=== PATIENT | female | born 1965 | race Caucasian/White ===

== ENCOUNTER 2017-01-23 20:41 | Observation (INO) | payer OTHER ==
[~2017-01-23] VITALS: Ht 149.9 cm; Wt 43.4 kg
[~2017-01-23 20:41] MED LIST: ATROVENT H200 INHALA IH; CARAFATE1 GM PO; CLARINEX-D 121 EACH PO; DILAUDID2 MG PO; PREDNISONE50 MG PO; PRILOSEC20 MG PO; PROTONIX; SPACE CHAMBER1 EACH MC; SUDAFED 12-HOU120 MG PO; VENTOLIN HFA18 GM IH; ZANTAC150 M1 PO; ZITHROMAX Z-PA250 MG PO; ZOFRAN4 MG PO; [UNRECOGNIZED DRUG - REMARK]
[2017-01-23 22:27] LABS: HEMATOCRIT 44.8 % (36.0-46.0); MCH 30.2 PG (29.0-34.0); MCHC 34.2 G/DL (30.0-36.0); MCV 88.4 FL (83-99); MEAN PLAT.VOLUME 10.5 uM^3 (9.5-12.4); PLATELET COUNT 166 K/uL (156-360); RBC DIS.WIDTH-CV 12.2 % (11.8-14.6); RBC DIS.WIDTH-SD 39.9 % (39-53); RED BLOOD COUNT 5.07 M/uL (3.80-5.20)
[2017-01-23 22:41] LABS: CHLORIDE 102 mEq/L (99-109); POTASSIUM 4.1 mEq/L (3.7-5.4); SODIUM 138 mEq/L (136-147)
[2017-01-23 22:43] LABS: GLUCOSE 150 mg/dL (70-99)
[2017-01-23 22:45] LABS: ANION GAP 15 MEQ/L (2-14); TOTAL BILIRUBIN 1.3 mg/dL (0.0-1.0)
[2017-01-23 22:47] LABS: ALKALINE PHOSPHATASE 77 IU/L (3-129); GFR ESTIMATE (CALCULATED) 55 mL/min/
[2017-01-23 22:48] LABS: UREA NITROGEN (BUN) 22 mg/dL (9-23)
[2017-01-23 22:50] LABS: LIPASE 4 U/L (1.0-51.0)
[2017-01-23 22:57] LABS: QUANTITATIVE HCG < 4.0 MIU/ML
[2017-01-23 23:53] LABS: ADD MIUA? YES; BILIRUBIN NEGATIVE; BLOOD SMALL; COLOR YELLOW ((YELLOW)); GLUCOSE (STRIP) 50; KETONES 20; LEUKOCYTES NEGATIVE; NITRITE NEGATIVE; PROTEIN (STRIP) 100; SPECIFIC GRAVITY 1.038 (1.000-1.030); UROBILINOGEN 0.2 MG/DL (0.2-1.0)
[2017-01-23 23:56] LABS: BACTERIA NONE SEEN /HPF; EPITHELIAL CELLS RARE /HPF; MUCUS 3+ /LPF; UCUL ADDED? NO; WHITE BLOOD CELLS 0-5 /HPF (0-5)
[2017-01-24] MEDS ORDERED: OMEPRAZOLE40 M1 PO (01:49)
[2017-01-24] MEDS ORDERED: VENTOLIN HFA18 GM IH (01:50)
[2017-01-24 03:36] VITALS: BP 163/95
[2017-01-24 07:01] LABS: HEMATOCRIT 41.6 % (36.0-46.0); MCHC 34.4 G/DL (30.0-36.0); MCV 87.2 FL (83-99); MEAN PLAT.VOLUME 10.4 uM^3 (9.5-12.4); PLATELET COUNT 170 K/uL (156-360); RBC DIS.WIDTH-CV 12.4 % (11.8-14.6); RBC DIS.WIDTH-SD 39.6 % (39-53); RED BLOOD COUNT 4.77 M/uL (3.80-5.20); WHITE BLOOD COUNT 10.7 K/uL (4.1-10.2)
[2017-01-24 07:19] VITALS: BP 168/88
[2017-01-24 07:31] LABS: ANION GAP 10 MEQ/L (2-14); CHLORIDE 104 MEQ/L (99-109); GFR ESTIMATE (CALCULATED) > 59 mL/min/; GLUCOSE 138 mg/dL (70-99); POTASSIUM 3.6 MEQ/L (3.7-5.4); SAMPLE HEMOLYSIS CHECK 0; SAMPLE ICTERIC CHECK 0; SAMPLE LIPEMIA CHECK 0; SODIUM 138 MEQ/L (136-147); UREA NITROGEN (BUN) 17 mg/dL (9-23)
[2017-01-24 10:25] VITALS: BP 170/77
[2017-01-24 15:33] VITALS: BP 142/88
[2017-01-24 20:00] VITALS: BP 144/88
[2017-01-24 22:56] VITALS: BP 135/91
[2017-01-25 04:20] VITALS: BP 144/74
[2017-01-25 06:25] LABS: EOSINOPHIL (%) 0.1 % (0-5); IMMATURE GRANULOCYTE (%) 0.4 % (0.0-0.7); INSTRUMENT ABS NEUTROPHIL CT 6.5 K/uL; LYMPHOCYTE COUNT 1.2 K/uL (1.0-2.8); MCH 30.2 PG (29.0-34.0); MCHC 34.5 G/DL (30.0-36.0); MCV 87.5 FL (83-99); MEAN PLAT.VOLUME 10.4 uM^3 (9.5-12.4); MONOCYTE (%) 6.9 % (3-12); MONOCYTE COUNT 0.6 K/uL (0-0.8); NEUTROPHIL (%) 78.2 % (45-76); NEUTROPHIL COUNT 6.5 K/uL (1.8-6.4); PLATELET COUNT 160 K/uL (156-360); RBC DIS.WIDTH-CV 12.5 % (11.8-14.6); RBC DIS.WIDTH-SD 39.9 % (39-53); RED BLOOD COUNT 4.57 M/uL (3.80-5.20); WHITE BLOOD COUNT 8.3 K/uL (4.1-10.2)
[2017-01-25 06:43] LABS: ANION GAP 8 MEQ/L (2-14); CHLORIDE 99 MEQ/L (99-109); GFR ESTIMATE (CALCULATED) > 59 mL/min/; GLUCOSE 122 mg/dL (70-99); SAMPLE HEMOLYSIS CHECK 0; SAMPLE ICTERIC CHECK 0; SAMPLE LIPEMIA CHECK 0; SODIUM 132 MEQ/L (136-147); UREA NITROGEN (BUN) 7 mg/dL (9-23)
[2017-01-25 07:35] VITALS: BP 140/99
[2017-01-25 12:10] VITALS: BP 154/98
[2017-01-25] MEDS ORDERED: ZOFRAN4 MG PO (13:19)
== END 2017-01-25 14:42 | disposition home health service (06) ==
LOC: EME 20:41 → EDOF 01-24 01:48 → 5WEST 01-24 01:48 → EDOF 01-24 01:48 → 5WEST 01-24 03:07
PROVIDERS: Family Medicine; Physician Assistant Medical
DX: R11.2 Nausea with vomiting, unspecified (principal); R19.7 Diarrhea, unspecified; F17.200 Nicotine dependence, unspecified, uncomplicated; R73.9 Hyperglycemia, unspecified
CPT/HCPCS: 74177; 80048; 80053; 81003; 83690; 84702; 85025; 85027; 94640; 94640 76; 99202; 99281; 99285; C9113; G0378; J2405; J2765; J7030; S0028

== ENCOUNTER 2017-02-15 11:01 | Inpatient (IN) | payer OTHER ==
[~2017-02-15] VITALS: Ht 162.6 cm; Wt 46.0 kg
[~2017-02-15 11:01] MED LIST changes: +OMEPRAZOLE40 M1 PO
[2017-02-15 12:41] LABS: HEMATOCRIT 40.6 % (36.0-46.0); MCH 30.1 PG (29.0-34.0); MCV 91.2 FL (83-99); PLATELET COUNT 189 K/uL (156-360); RBC DIS.WIDTH-CV 12.9 % (11.8-14.6); RBC DIS.WIDTH-SD 42.7 % (39-53); RED BLOOD COUNT 4.45 M/uL (3.80-5.20)
[2017-02-15 12:43] LABS: WHITE BLOOD COUNT 7.6 K/uL (4.1-10.2)
[2017-02-15 12:46] LABS: CHLORIDE 106 mEq/L (99-109); POTASSIUM 3.6 mEq/L (3.7-5.4); SODIUM 141 mEq/L (136-147)
[2017-02-15 12:48] LABS: GLUCOSE 139 mg/dL (70-99)
[2017-02-15 12:49] LABS: ANION GAP 10 MEQ/L (2-14)
[2017-02-15 12:52] LABS: ALKALINE PHOSPHATASE 70 IU/L (3-129); GFR ESTIMATE (CALCULATED) > 59 mL/min/
[2017-02-15 12:53] LABS: UREA NITROGEN (BUN) 11 mg/dL (9-23)
[2017-02-15 13:04] LABS: QUANTITATIVE HCG < 4.0 MIU/ML
[2017-02-15 13:50] LABS: LIPASE 18 U/L (1.0-51.0)
[2017-02-15 15:00] LABS: ADD MIUA? YES; BILIRUBIN NEGATIVE; BLOOD NEGATIVE; COLOR YELLOW ((YELLOW)); GLUCOSE (STRIP) 50; KETONES 5; LEUKOCYTES TRACE; NITRITE NEGATIVE; PROTEIN (STRIP) NEGATIVE; SPECIFIC GRAVITY 1.012 (1.000-1.030); UROBILINOGEN 0.2 MG/DL (0.2-1.0)
[2017-02-15 15:34] LABS: BACTERIA RARE /HPF; EPITHELIAL CELLS RARE /HPF; MUCUS TRACE /LPF; RED BLOOD CELLS 0-5 /HPF (0-5); UCUL ADDED? NO; WHITE BLOOD CELLS 0-5 /HPF (0-5)
[2017-02-15 22:05] VITALS: BP 175/101
[2017-02-16 00:31] VITALS: BP 167/97
[2017-02-16 03:46] VITALS: BP 142/76
[2017-02-16 05:35] LABS: HEMATOCRIT 37.7 % (36.0-46.0); MCV 88.3 FL (83-99); MEAN PLAT.VOLUME 9.9 uM^3 (9.5-12.4); PLATELET COUNT 182 K/uL (156-360); RBC DIS.WIDTH-CV 12.9 % (11.8-14.6); RBC DIS.WIDTH-SD 41.8 % (39-53); RED BLOOD COUNT 4.27 M/uL (3.80-5.20); WHITE BLOOD COUNT 7.9 K/uL (4.1-10.2)
[2017-02-16 06:37] LABS: ANION GAP 10 MEQ/L (2-14); CHLORIDE 104 MEQ/L (99-109); GFR ESTIMATE (CALCULATED) > 59 mL/min/; GLUCOSE 129 mg/dL (70-99); POTASSIUM 3.6 MEQ/L (3.7-5.4); SAMPLE HEMOLYSIS CHECK 0; SAMPLE ICTERIC CHECK 0; SAMPLE LIPEMIA CHECK 0; SODIUM 138 MEQ/L (136-147); UREA NITROGEN (BUN) 8 mg/dL (9-23)
[2017-02-16 08:20] VITALS: BP 145/80
[2017-02-16 12:34] VITALS: BP 141/85
[2017-02-16 16:00] VITALS: BP 161/95
[2017-02-16 19:42] VITALS: BP 147/95
[2017-02-17 00:05] VITALS: BP 178/108
[2017-02-17 06:04] LABS: ANION GAP 7 MEQ/L (2-14); CHLORIDE 102 MEQ/L (99-109); GFR ESTIMATE (CALCULATED) > 59 mL/min/; GLUCOSE 132 mg/dL (70-99); POTASSIUM 3.6 MEQ/L (3.7-5.4); SAMPLE HEMOLYSIS CHECK 0; SAMPLE ICTERIC CHECK 0; SAMPLE LIPEMIA CHECK 0; SODIUM 134 MEQ/L (136-147); UREA NITROGEN (BUN) 3 mg/dL (9-23)
[2017-02-17 06:08] VITALS: BP 162/86
[2017-02-17 08:05] VITALS: BP 136/88
[2017-02-17 14:30] VITALS: BP 129/82
[2017-02-17] MEDS ORDERED: CETIRIZINE HCL10 M2 PO (15:09)
[2017-02-17] MEDS ORDERED: SYMBICORT60 INHALAT IH (15:10)
[2017-02-17] MEDS ORDERED: ONDANSETRON ODT4 MG PO (15:10)
[2017-02-17] MEDS ORDERED: MELOXICAM15 MG PO (15:11)
[2017-02-17 16:00] VITALS: BP 142/84
[2017-02-17 19:55] VITALS: BP 127/85
[2017-02-18 00:10] VITALS: BP 121/68
[2017-02-18 05:37] LABS: ANION GAP 7 MEQ/L (2-14); CHLORIDE 104 MEQ/L (99-109); GFR ESTIMATE (CALCULATED) > 59 mL/min/; GLUCOSE 103 mg/dL (70-99); POTASSIUM 3.5 MEQ/L (3.7-5.4); SAMPLE HEMOLYSIS CHECK 0; SAMPLE ICTERIC CHECK 0; SAMPLE LIPEMIA CHECK 0; SODIUM 137 MEQ/L (136-147); UREA NITROGEN (BUN) 6 mg/dL (9-23)
[2017-02-18 08:16] VITALS: BP 170/106
[2017-02-18 12:20] VITALS: BP 162/108
[2017-02-18 15:12] VITALS: BP 197/98
[2017-02-18 16:48] VITALS: BP 173/71
[2017-02-18 21:46] VITALS: BP 136/83
[2017-02-19 00:45] VITALS: BP 170/86
[2017-02-19 02:44] LABS: HEMATOCRIT 41.4 % (36.0-46.0); MCH 30.4 PG (29.0-34.0); MCHC 34.8 G/DL (30.0-36.0); MCV 87.3 FL (83-99); MEAN PLAT.VOLUME 9.7 uM^3 (9.5-12.4); PLATELET COUNT 197 K/uL (156-360); RBC DIS.WIDTH-CV 12.8 % (11.8-14.6); RBC DIS.WIDTH-SD 41.2 % (39-53); RED BLOOD COUNT 4.74 M/uL (3.80-5.20); WHITE BLOOD COUNT 5.7 K/uL (4.1-10.2)
[2017-02-19 02:54] LABS: CHLORIDE 100 mEq/L (99-109); SODIUM 135 mEq/L (136-147)
[2017-02-19 02:55] LABS: GLUCOSE 100 mg/dL (70-99)
[2017-02-19 02:57] LABS: ANION GAP 11 MEQ/L (2-14)
[2017-02-19 02:58] LABS: D-DIMER ELISA 0.45 mg/L FEU (< 0.57)
[2017-02-19 02:59] LABS: GFR ESTIMATE (CALCULATED) > 59 mL/min/
[2017-02-19 03:00] VITALS: BP 155/59
[2017-02-19 03:00] LABS: UREA NITROGEN (BUN) 5 mg/dL (9-23)
[2017-02-19 03:11] LABS: TROP-I INTERPRETATION NEGATIVE; TROPONIN-I < 0.01 ng/mL (0.0-0.30)
[2017-02-19 06:54] LABS: BASOPHIL COUNT 0.1 K/uL (0-0.1); EOSINOPHIL (%) 0.1 % (0-5); HEMATOCRIT 38.7 % (36.0-46.0); IMMATURE GRANULOCYTE (%) 0.3 % (0.0-0.7); INSTRUMENT ABS NEUTROPHIL CT 5.8 K/uL; LYMPHOCYTE COUNT 1.2 K/uL (1.0-2.8); MCHC 33.9 G/DL (30.0-36.0); MCV 88.6 FL (83-99); MONOCYTE (%) 5.9 % (3-12); MONOCYTE COUNT 0.4 K/uL (0-0.8); NEUTROPHIL (%) 77.4 % (45-76); NEUTROPHIL COUNT 5.8 K/uL (1.8-6.4); PLATELET COUNT 187 K/uL (156-360); RBC DIS.WIDTH-SD 42.4 % (39-53); RED BLOOD COUNT 4.37 M/uL (3.80-5.20)
[2017-02-19 06:56] LABS: WHITE BLOOD COUNT 7.5 K/uL (4.1-10.2)
[2017-02-19 07:22] LABS: ALKALINE PHOSPHATASE 65 IU/L (3-129); ANION GAP 9 MEQ/L (2-14); CHLORIDE 98 MEQ/L (99-109); GFR ESTIMATE (CALCULATED) > 59 mL/min/; GLUCOSE 99 mg/dL (70-99); SAMPLE HEMOLYSIS CHECK 0; SAMPLE ICTERIC CHECK 0; SAMPLE LIPEMIA CHECK 0; SODIUM 134 MEQ/L (136-147); TOTAL BILIRUBIN 1.6 MG/DL (0.0-1.0); UREA NITROGEN (BUN) 6 mg/dL (9-23)
[2017-02-19 07:56] VITALS: BP 156/77
[2017-02-19 12:30] VITALS: BP 142/96
[2017-02-19 18:25] VITALS: BP 134/86
[2017-02-19 20:20] VITALS: BP 107/66
[2017-02-20] VITALS: BP 112/68
[2017-02-20 04:30] VITALS: BP 128/81
[2017-02-20 06:52] LABS: BASOPHIL COUNT 0.1 K/uL (0-0.1); EOSINOPHIL (%) 1.7 % (0-5); EOSINOPHIL COUNT 0.1 K/uL (0-0.3); HEMATOCRIT 35.9 % (36.0-46.0); IMMATURE GRANULOCYTE (%) 0.3 % (0.0-0.7); INSTRUMENT ABS NEUTROPHIL CT 2.3 K/uL; LYMPHOCYTE COUNT 0.9 K/uL (1.0-2.8); MCH 30.1 PG (29.0-34.0); MCV 88.6 FL (83-99); MEAN PLAT.VOLUME 9.4 uM^3 (9.5-12.4); MONOCYTE (%) 9.2 % (3-12); MONOCYTE COUNT 0.3 K/uL (0-0.8); NEUTROPHIL (%) 63.1 % (45-76); NEUTROPHIL COUNT 2.3 K/uL (1.8-6.4); PLATELET COUNT 164 K/uL (156-360); RBC DIS.WIDTH-CV 12.9 % (11.8-14.6); RED BLOOD COUNT 4.05 M/uL (3.80-5.20)
[2017-02-20 06:54] LABS: WHITE BLOOD COUNT 3.6 K/uL (4.1-10.2)
[2017-02-20 07:17] LABS: ANION GAP 5 MEQ/L (2-14); CHLORIDE 101 MEQ/L (99-109); GFR ESTIMATE (CALCULATED) > 59 mL/min/; GLUCOSE 108 mg/dL (70-99); SAMPLE HEMOLYSIS CHECK 0; SAMPLE ICTERIC CHECK 0; SAMPLE LIPEMIA CHECK 0; SODIUM 133 MEQ/L (136-147); UREA NITROGEN (BUN) 9 mg/dL (9-23)
[2017-02-20 07:19] LABS: POTASSIUM 3.7 MEQ/L (3.7-5.4)
[2017-02-20 08:05] VITALS: BP 137/88
[2017-02-20 16:10] VITALS: BP 127/79
[2017-02-20 23:15] VITALS: BP 123/76
[2017-02-21 06:29] LABS: ANION GAP 7 MEQ/L (2-14); CHLORIDE 100 MEQ/L (99-109); GFR ESTIMATE (CALCULATED) > 59 mL/min/; GLUCOSE 104 mg/dL (70-99); POTASSIUM 3.5 MEQ/L (3.7-5.4); SAMPLE HEMOLYSIS CHECK 0; SAMPLE ICTERIC CHECK 0; SAMPLE LIPEMIA CHECK 0; SODIUM 133 MEQ/L (136-147); UREA NITROGEN (BUN) 7 mg/dL (9-23)
[2017-02-21 08:34] VITALS: BP 130/89
[2017-02-21 17:16] VITALS: BP 168/91
[2017-02-21] MEDS ORDERED: DICYCLOMINE HCL10 MG PO (18:35)
[2017-02-21] MEDS ORDERED: ENDOCET 5-3251 EACH PO (18:35)
[2017-02-21] MEDS ORDERED: METRONIDAZOLE500 MG PO (18:35)
[2017-02-21] MEDS ORDERED: ONDANSETRON ODT4 MG PO (18:35)
[2017-02-21] MEDS ORDERED: CLARITHROMYCIN500 MG PO (18:35)
[2017-02-21] MEDS ORDERED: PANTOPRAZOLE SO40 MG PO (18:35)
[2017-02-21] MEDS ORDERED: BYSTOLIC5 MG PO (18:35)
== END 2017-02-21 20:13 | disposition home or self-care (01) | DRG 446 ==
LOC: EME 11:01 → EDOF 19:50 → 5WEST 19:50 → EME 21:29 → 5WEST 21:48 → 4EAST 02-18 12:21 → 5WEST 02-19 02:47 → 4EAST 02-19 03:20 → 5EAST 02-20 17:54
PROVIDERS: Family Medicine; Internal Medicine
DX: K83.8 Other specified diseases of biliary tract (principal); K29.40 Chronic atrophic gastritis without bleeding; B96.81 Helicobacter pylori [H. pylori] as the cause of diseases classified elsewhere; R11.2 Nausea with vomiting, unspecified; F41.9 Anxiety disorder, unspecified; R63.4 Abnormal weight loss; J44.9 Chronic obstructive pulmonary disease, unspecified; F32.9 Major depressive disorder, single episode, unspecified; F17.210 Nicotine dependence, cigarettes, uncomplicated; R07.9 Chest pain, unspecified; R00.0 Tachycardia, unspecified; E87.6 Hypokalemia; R12 Heartburn; K21.9 Gastro-esophageal reflux disease without esophagitis
CPT/HCPCS: 71010; 71275; 74174; 80048; 80048 91; 80053; 81003; 83605; 83690; 84484; 84702; 85025; 85027; 85379; 88305; 88342 TC; 93005; 94640; 94640 76; 94799; 99202; 99281; 99285; C1726; C9113; G0378; J0330; J1100; J1200; J1650; J1885; J2405; J2765; J3010; J3480; J7030; J7042

== ENCOUNTER 2017-02-24 11:22 | Emergency (ER) | payer OTHER ==
[~2017-02-24] VITALS: Ht 149.9 cm; Wt 42.9 kg
[~2017-02-24 11:22] MED LIST changes: +BYSTOLIC5 MG PO; +CETIRIZINE HCL10 M2 PO; +CLARITHROMYCIN500 MG PO; +DICYCLOMINE HCL10 MG PO; +ENDOCET 5-3251 EACH PO; +MELOXICAM15 MG PO; +METRONIDAZOLE500 MG PO; +ONDANSETRON ODT4 MG PO; +PANTOPRAZOLE SO40 MG PO; +SYMBICORT60 INHALAT IH
[2017-02-24 12:58] LABS: BASOPHIL COUNT 0.1 K/uL (0-0.1); EOSINOPHIL (%) 0.4 % (0-5); HEMATOCRIT 39.9 % (36.0-46.0); IMMATURE GRANULOCYTE (%) 0.3 % (0.0-0.7); INSTRUMENT ABS NEUTROPHIL CT 6.1 K/uL; LYMPHOCYTE COUNT 0.7 K/uL (1.0-2.8); MCH 30.6 PG (29.0-34.0); MCHC 34.3 G/DL (30.0-36.0); MCV 89.3 FL (83-99); MEAN PLAT.VOLUME 10.4 uM^3 (9.5-12.4); MONOCYTE (%) 4.6 % (3-12); MONOCYTE COUNT 0.3 K/uL (0-0.8); NEUTROPHIL (%) 83.9 % (45-76); NEUTROPHIL COUNT 6.1 K/uL (1.8-6.4); PLATELET COUNT 202 K/uL (156-360); RBC DIS.WIDTH-CV 12.8 % (11.8-14.6); RED BLOOD COUNT 4.47 M/uL (3.80-5.20); WHITE BLOOD COUNT 7.2 K/uL (4.1-10.2)
[2017-02-24 13:09] LABS: CHLORIDE 103 mEq/L (99-109); POTASSIUM 3.1 mEq/L (3.7-5.4); SODIUM 139 mEq/L (136-147)
[2017-02-24 13:15] LABS: GFR ESTIMATE (CALCULATED) > 59 mL/min/
[2017-02-24 13:16] LABS: UREA NITROGEN (BUN) 12 mg/dL (9-23)
[2017-02-24 13:18] LABS: LIPASE 22 U/L (1.0-51.0)
[2017-02-24 13:36] LABS: ANION GAP 11 MEQ/L (2-14)
[2017-02-24 13:50] LABS: ADD MIUA? NO; BILIRUBIN NEGATIVE; BLOOD NEGATIVE; COLOR YELLOW ((YELLOW)); GLUCOSE (STRIP) NEGATIVE; KETONES NEGATIVE; LEUKOCYTES NEGATIVE; NITRITE NEGATIVE; PROTEIN (STRIP) NEGATIVE; SPECIFIC GRAVITY 1.017 (1.000-1.030); UCUL ADDED? NO; UROBILINOGEN 0.2 MG/DL (0.2-1.0)
[2017-02-24 14:02] LABS: GLUCOSE 113 mg/dL (70-99)
[2017-02-24 14:05] LABS: ALKALINE PHOSPHATASE 61 IU/L (3-129)
[2017-02-24] MEDS ORDERED: DONNATAL1 TABLET PO (14:39)
[2017-02-24 16:55] VITALS: BP 184/112
== END 2017-02-24 17:06 | disposition home or self-care (01) ==
LOC: EME → EDBD 11:22 → EME 17:06
PROVIDERS: Emergency Medicine
DX: R10.9 Unspecified abdominal pain (principal); I10 Essential (primary) hypertension; K21.9 Gastro-esophageal reflux disease without esophagitis; J44.9 Chronic obstructive pulmonary disease, unspecified; Z87.891 Personal history of nicotine dependence
CPT/HCPCS: 80053; 81003; 83690; 85025; 99281; 99285; J2060; J2270; J2405; J7030

== ENCOUNTER 2017-02-26 08:18 | Emergency (ER) | payer OTHER ==
[~2017-02-26] VITALS: Ht 124.5 cm; Wt 39.5 kg
[~2017-02-26 08:18] MED LIST changes: +DONNATAL1 TABLET PO
[2017-02-26 09:15] LABS: CHLORIDE 99 mEq/L (99-109); POTASSIUM 3.7 mEq/L (3.7-5.4); SODIUM 133 mEq/L (136-147)
[2017-02-26 09:17] LABS: GLUCOSE 87 mg/dL (70-99)
[2017-02-26 09:18] LABS: ANION GAP 8 MEQ/L (2-14)
[2017-02-26 09:19] LABS: TOTAL BILIRUBIN 1.2 mg/dL (0.0-1.0)
[2017-02-26 09:20] LABS: ALKALINE PHOSPHATASE 53 IU/L (3-129)
[2017-02-26 09:21] LABS: GFR ESTIMATE (CALCULATED) > 59 mL/min/
[2017-02-26 09:22] LABS: UREA NITROGEN (BUN) 11 mg/dL (9-23)
[2017-02-26 09:24] LABS: LIPASE 14 U/L (1.0-51.0)
[2017-02-26 09:25] LABS: EOSINOPHIL (%) 0.4 % (0-5); HEMATOCRIT 40.7 % (36.0-46.0); IMMATURE GRANULOCYTE (%) 0.4 % (0.0-0.7); INSTRUMENT ABS NEUTROPHIL CT 3.4 K/uL; LYMPHOCYTE COUNT 0.7 K/uL (1.0-2.8); MCH 30.2 PG (29.0-34.0); MCHC 33.9 G/DL (30.0-36.0); MCV 89.1 FL (83-99); MEAN PLAT.VOLUME 9.4 uM^3 (9.5-12.4); MONOCYTE (%) 6.4 % (3-12); MONOCYTE COUNT 0.3 K/uL (0-0.8); NEUTROPHIL (%) 75.7 % (45-76); NEUTROPHIL COUNT 3.4 K/uL (1.8-6.4); PLATELET COUNT 207 K/uL (156-360); RBC DIS.WIDTH-CV 12.7 % (11.8-14.6); RBC DIS.WIDTH-SD 41.4 % (39-53); RED BLOOD COUNT 4.57 M/uL (3.80-5.20)
[2017-02-26 09:26] LABS: WHITE BLOOD COUNT 4.5 K/uL (4.1-10.2)
[2017-02-26 11:09] LABS: ADD MIUA? NO; BILIRUBIN NEGATIVE; BLOOD NEGATIVE; COLOR STRAW ((YELLOW)); GLUCOSE (STRIP) NEGATIVE; KETONES 20; LEUKOCYTES NEGATIVE; NITRITE NEGATIVE; PROTEIN (STRIP) NEGATIVE; UROBILINOGEN 0.2 MG/DL (0.2-1.0)
[2017-02-26 13:22] VITALS: BP 92/62
== END 2017-02-26 13:24 | disposition home or self-care (01) ==
LOC: EME → EDBD 08:18 → EME 13:24
PROVIDERS: Emergency Medicine
DX: R10.30 Lower abdominal pain, unspecified (principal); R11.2 Nausea with vomiting, unspecified; K58.9 Irritable bowel syndrome, unspecified; I10 Essential (primary) hypertension; J44.9 Chronic obstructive pulmonary disease, unspecified; K21.9 Gastro-esophageal reflux disease without esophagitis; F41.9 Anxiety disorder, unspecified; F32.9 Major depressive disorder, single episode, unspecified; Z87.891 Personal history of nicotine dependence; Z91.14 Patient's other noncompliance with medication regimen
CPT/HCPCS: 80053; 81003; 83690; 85025; 99281; 99285; J1885; J2405; J2765; J3010; J7030

== ENCOUNTER 2017-02-28 13:49 | Emergency (ER) | payer OTHER ==
[~2017-02-28] VITALS: Ht 149.9 cm; Wt 40.5 kg
[2017-02-28 15:10] LABS: ADD MIUA? NO; BILIRUBIN NEGATIVE; BLOOD NEGATIVE; COLOR YELLOW ((YELLOW)); GLUCOSE (STRIP) 50; KETONES 20; LEUKOCYTES NEGATIVE; NITRITE NEGATIVE; PROTEIN (STRIP) 30; SPECIFIC GRAVITY 1.016 (1.000-1.030); UROBILINOGEN 0.2 MG/DL (0.2-1.0)
[2017-02-28 15:16] LABS: HEMATOCRIT 39.3 % (36.0-46.0); MCH 30.4 PG (29.0-34.0); MCHC 34.4 G/DL (30.0-36.0); MCV 88.5 FL (83-99); MEAN PLAT.VOLUME 9.4 uM^3 (9.5-12.4); PLATELET COUNT 241 K/uL (156-360); RBC DIS.WIDTH-CV 12.8 % (11.8-14.6); RBC DIS.WIDTH-SD 41.7 % (39-53); RED BLOOD COUNT 4.44 M/uL (3.80-5.20)
[2017-02-28 15:20] LABS: WHITE BLOOD COUNT 6.3 K/uL (4.1-10.2)
[2017-02-28 15:31] LABS: ALKALINE PHOSPHATASE 55 IU/L (3-129); ANION GAP 11 MEQ/L (2-14); CHLORIDE 100 MEQ/L (99-109); GFR ESTIMATE (CALCULATED) > 59 mL/min/; GLUCOSE 122 mg/dL (70-99); LIPASE 14 U/L (1.0-51.0); POTASSIUM 3.4 MEQ/L (3.7-5.4); SAMPLE HEMOLYSIS CHECK 0; SAMPLE ICTERIC CHECK 0; SAMPLE LIPEMIA CHECK 0; SODIUM 137 MEQ/L (136-147); UREA NITROGEN (BUN) 9 mg/dL (9-23)
[2017-02-28] MEDS ORDERED: PHENERGAN12.5 MG PR (16:40)
[2017-02-28 17:06] VITALS: BP 128/81
== END 2017-02-28 17:07 | disposition home or self-care (01) ==
LOC: EME 13:49
PROVIDERS: Nurse Practitioner Family
DX: R10.9 Unspecified abdominal pain (principal); R11.0 Nausea; J44.9 Chronic obstructive pulmonary disease, unspecified; I10 Essential (primary) hypertension; K21.9 Gastro-esophageal reflux disease without esophagitis; Z87.891 Personal history of nicotine dependence; B96.81 Helicobacter pylori [H. pylori] as the cause of diseases classified elsewhere; K29.70 Gastritis, unspecified, without bleeding
CPT/HCPCS: 80053; 81003; 83690; 85027; 99281; 99285; J1630; J1885; J2405; J3010; J7030

== ENCOUNTER → 2017-03-25 | Outpatient (CLI) | payer OTHER ==
[~2017-03-25] MED LIST changes: +PHENERGAN12.5 MG PR
== END | disposition home or self-care (01) ==
LOC: NUC 11:07
DX: R10.33 Periumbilical pain (principal); R93.3 Abnormal findings on diagnostic imaging of other parts of digestive tract; R11.2 Nausea with vomiting, unspecified; R63.4 Abnormal weight loss
CPT/HCPCS: 78227; A9537; J2805

== ENCOUNTER 2017-05-30 07:57 | Emergency (ER) | payer OTHER ==
[~2017-05-30] VITALS: Ht 149.9 cm; Wt 40.1 kg
[2017-05-30 08:20] LABS: HEMATOCRIT 42.7 % (36.0-46.0); MCH 30.7 PG (29.0-34.0); MCHC 34.4 G/DL (30.0-36.0); MCV 89.1 FL (83-99); MEAN PLAT.VOLUME 10.3 uM^3 (9.5-12.4); PLATELET COUNT 153 K/uL (156-360); RBC DIS.WIDTH-CV 11.9 % (11.8-14.6); RBC DIS.WIDTH-SD 38.7 % (39-53); RED BLOOD COUNT 4.79 M/uL (3.80-5.20); WHITE BLOOD COUNT 8.1 K/uL (4.1-10.2)
[2017-05-30 08:41] LABS: ANION GAP 12 MEQ/L (2-14); CHLORIDE 103 MEQ/L (99-109); POTASSIUM 3.7 MEQ/L (3.7-5.4); SAMPLE HEMOLYSIS CHECK 0; SAMPLE ICTERIC CHECK 0; SAMPLE LIPEMIA CHECK 0; SODIUM 140 MEQ/L (136-147); TOTAL BILIRUBIN 1.5 MG/DL (0.0-1.0)
[2017-05-30 08:47] LABS: ALKALINE PHOSPHATASE 56 IU/L (3-129); GFR ESTIMATE (CALCULATED) > 59 mL/min/; GLUCOSE 112 mg/dL (70-99); LIPASE 4 U/L (1.0-51.0); UREA NITROGEN (BUN) 25 mg/dL (9-23)
[2017-05-30 09:34] LABS: ADD MIUA? YES; BILIRUBIN NEGATIVE; BLOOD SMALL; COLOR YELLOW ((YELLOW)); GLUCOSE (STRIP) 50; KETONES 20; LEUKOCYTES NEGATIVE; NITRITE NEGATIVE; PROTEIN (STRIP) 100; UROBILINOGEN 0.2 MG/DL (0.2-1.0)
[2017-05-30 09:40] LABS: BACTERIA NONE SEEN /HPF; EPITHELIAL CELLS RARE /HPF; HYALINE CASTS 0-5 /LPF; MUCUS TRACE /LPF; RED BLOOD CELLS 0-5 /HPF (0-5); WHITE BLOOD CELLS 0-5 /HPF (0-5)
[2017-05-30] MEDS ORDERED: BENTYL20 MG PO (11:37)
[2017-05-30] MEDS ORDERED: PHENERGAN12.5 MG PR (11:37)
[2017-05-30 12:33] VITALS: BP 151/99
== END 2017-05-30 12:34 | disposition home or self-care (01) ==
LOC: EME → EDBD 07:57 → EME 07:57
PROVIDERS: Nurse Practitioner Family
DX: R10.9 Unspecified abdominal pain (principal); R11.2 Nausea with vomiting, unspecified; I10 Essential (primary) hypertension; K21.9 Gastro-esophageal reflux disease without esophagitis; J44.9 Chronic obstructive pulmonary disease, unspecified; Z86.73 Personal history of transient ischemic attack (TIA), and cerebral infarction without residual deficits; Z87.891 Personal history of nicotine dependence
CPT/HCPCS: 74177; 80053; 81003; 83690; 85027; 99281; 99285; J1630; J1885; J7040

== ENCOUNTER 2017-06-03 10:09 | Emergency (ER) | payer OTHER ==
[~2017-06-03] VITALS: Ht 149.9 cm; Wt 38.8 kg
[~2017-06-03 10:09] MED LIST changes: +BENTYL20 MG PO
[2017-06-03 11:09] LABS: BASOPHIL COUNT 0.1 K/uL (0-0.1); EOSINOPHIL (%) 0.9 % (0-5); EOSINOPHIL COUNT 0.1 K/uL (0-0.3); HEMATOCRIT 46.4 % (36.0-46.0); IMMATURE GRANULOCYTE (%) 0.4 % (0.0-0.7); INSTRUMENT ABS NEUTROPHIL CT 4.7 K/uL; LYMPHOCYTE COUNT 1.3 K/uL (1.0-2.8); MCH 30.8 PG (29.0-34.0); MCHC 34.9 G/DL (30.0-36.0); MCV 88.2 FL (83-99); MEAN PLAT.VOLUME 10.1 uM^3 (9.5-12.4); MONOCYTE (%) 9.3 % (3-12); MONOCYTE COUNT 0.6 K/uL (0-0.8); NEUTROPHIL (%) 69.3 % (45-76); NEUTROPHIL COUNT 4.7 K/uL (1.8-6.4); PLATELET COUNT 218 K/uL (156-360); RBC DIS.WIDTH-CV 11.6 % (11.8-14.6); RBC DIS.WIDTH-SD 37.2 % (39-53); RED BLOOD COUNT 5.26 M/uL (3.80-5.20); WHITE BLOOD COUNT 6.8 K/uL (4.1-10.2)
[2017-06-03 11:12] LABS: CHLORIDE 98 mEq/L (99-109); POTASSIUM 3.5 mEq/L (3.7-5.4); SODIUM 135 mEq/L (136-147)
[2017-06-03 11:14] LABS: GLUCOSE 100 mg/dL (70-99)
[2017-06-03 11:15] LABS: ANION GAP 12 MEQ/L (2-14)
[2017-06-03 11:16] LABS: TOTAL BILIRUBIN 2.8 mg/dL (0.0-1.0)
[2017-06-03 11:17] LABS: ALKALINE PHOSPHATASE 69 IU/L (3-129)
[2017-06-03 11:18] LABS: GFR ESTIMATE (CALCULATED) 55 mL/min/
[2017-06-03 11:19] LABS: UREA NITROGEN (BUN) 35 mg/dL (9-23)
[2017-06-03 11:21] LABS: LIPASE 27 U/L (1.0-51.0)
[2017-06-03] MEDS ORDERED: ZOFRAN4 MG PO (17:14)
[2017-06-03] MEDS ORDERED: BENTYL20 MG PO (17:14)
[2017-06-03 18:00] VITALS: BP 169/113
== END 2017-06-03 18:00 | disposition home or self-care (01) ==
LOC: EME → EDBD 10:09 → EME 18:00
PROVIDERS: Emergency Medicine
DX: R10.30 Lower abdominal pain, unspecified (principal); R11.2 Nausea with vomiting, unspecified; R19.7 Diarrhea, unspecified; I10 Essential (primary) hypertension; J44.9 Chronic obstructive pulmonary disease, unspecified; Z86.73 Personal history of transient ischemic attack (TIA), and cerebral infarction without residual deficits; Z88.1 Allergy status to other antibiotic agents; Z88.0 Allergy status to penicillin; Z87.891 Personal history of nicotine dependence
CPT/HCPCS: 80053; 83690; 85025; 99281; 99284; J2270; J2405; J3010; J7030

== ENCOUNTER 2017-06-04 10:54 | Emergency (ER) | payer OTHER ==
[~2017-06-04] VITALS: Ht 149.9 cm; Wt 48.0 kg
[2017-06-04 12:57] LABS: CHLORIDE 100 mEq/L (99-109); POTASSIUM 3.4 mEq/L (3.7-5.4); SODIUM 136 mEq/L (136-147)
[2017-06-04 13:00] LABS: GLUCOSE 94 mg/dL (70-99)
[2017-06-04 13:01] LABS: ANION GAP 10 MEQ/L (2-14)
[2017-06-04 13:02] LABS: TOTAL BILIRUBIN 2.5 mg/dL (0.0-1.0)
[2017-06-04 13:03] LABS: ALKALINE PHOSPHATASE 56 IU/L (3-129); GFR ESTIMATE (CALCULATED) > 59 mL/min/
[2017-06-04 13:04] LABS: UREA NITROGEN (BUN) 19 mg/dL (9-23)
[2017-06-04 13:07] LABS: LIPASE 29 U/L (1.0-51.0)
[2017-06-04 13:13] LABS: QUANTITATIVE HCG < 4.0 MIU/ML
[2017-06-04 13:13] LABS: ADD MIUA? YES; BILIRUBIN NEGATIVE; BLOOD SMALL; COLOR YELLOW ((YELLOW)); GLUCOSE (STRIP) NEGATIVE; KETONES 5; LEUKOCYTES NEGATIVE; NITRITE NEGATIVE; PROTEIN (STRIP) NEGATIVE; UROBILINOGEN 0.2 MG/DL (0.2-1.0)
[2017-06-04 13:15] LABS: BACTERIA RARE /HPF; EPITHELIAL CELLS RARE /HPF; MUCUS TRACE /LPF; RED BLOOD CELLS 0-5 /HPF (0-5); UCUL ADDED? NO; WHITE BLOOD CELLS 0-5 /HPF (0-5)
[2017-06-04 13:43] LABS: HEMATOCRIT 39.2 % (36.0-46.0); MCH 31.3 PG (29.0-34.0); MCHC 34.9 G/DL (30.0-36.0); MCV 89.5 FL (83-99); MEAN PLAT.VOLUME 10.3 uM^3 (9.5-12.4); PLATELET COUNT 156 K/uL (156-360); RBC DIS.WIDTH-CV 11.5 % (11.8-14.6); RBC DIS.WIDTH-SD 37.8 % (39-53); RED BLOOD COUNT 4.38 M/uL (3.80-5.20); WHITE BLOOD COUNT 6.4 K/uL (4.1-10.2)
[2017-06-04 15:36] VITALS: BP 170/109
== END 2017-06-04 15:42 | disposition home or self-care (01) ==
LOC: EME 10:54
PROVIDERS: Emergency Medicine
DX: R10.9 Unspecified abdominal pain (principal); J44.9 Chronic obstructive pulmonary disease, unspecified; Z87.891 Personal history of nicotine dependence
CPT/HCPCS: 71010; 74000; 80053; 81003; 83690; 84702; 85027; 99281; 99285; J2270; J2405; J7030

== ENCOUNTER 2017-06-06 23:37 | Emergency (ER) | payer OTHER ==
[~2017-06-06] VITALS: Ht 149.9 cm; Wt 37.5 kg
[2017-06-07 00:03] LABS: HEMATOCRIT 43.7 % (36.0-46.0); MCH 30.5 PG (29.0-34.0); MCHC 35.2 G/DL (30.0-36.0); MCV 86.5 FL (83-99); RBC DIS.WIDTH-CV 11.5 % (11.8-14.6); RBC DIS.WIDTH-SD 36.4 % (39-53); RED BLOOD COUNT 5.05 M/uL (3.80-5.20); WHITE BLOOD COUNT 6.3 K/uL (4.1-10.2)
[2017-06-07 00:12] LABS: CHLORIDE 96 mEq/L (99-109); POTASSIUM 3.1 mEq/L (3.7-5.4); SODIUM 137 mEq/L (136-147)
[2017-06-07 00:15] LABS: GLUCOSE 114 mg/dL (70-99)
[2017-06-07 00:16] LABS: ANION GAP 14 MEQ/L (2-14)
[2017-06-07 00:18] LABS: ALKALINE PHOSPHATASE 65 IU/L (3-129); GFR ESTIMATE (CALCULATED) > 59 mL/min/
[2017-06-07 00:20] LABS: UREA NITROGEN (BUN) 7 mg/dL (9-23)
[2017-06-07 00:27] LABS: QUANTITATIVE HCG < 4.0 MIU/ML
[2017-06-07 00:34] LABS: TOTAL BILIRUBIN 1.5 mg/dL (0.0-1.0)
[2017-06-07 01:11] LABS: PLAT.SUFFICIENCY ADEQUATE; PLATELET CLUMPS PRESENT - PLATELET COUNT APPEARS ADQ.
[2017-06-07 01:19] LABS: ADD MIUA? YES; BILIRUBIN NEGATIVE; BLOOD SMALL; COLOR STRAW ((YELLOW)); GLUCOSE (STRIP) 50; KETONES 20; LEUKOCYTES NEGATIVE; NITRITE NEGATIVE; PROTEIN (STRIP) 30; UROBILINOGEN 0.2 MG/DL (0.2-1.0)
[2017-06-07 01:27] LABS: BACTERIA NONE SEEN /HPF; EPITHELIAL CELLS NONE SEEN /HPF; MUCUS TRACE /LPF; UCUL ADDED? NO; WHITE BLOOD CELLS 0-5 /HPF (0-5)
[2017-06-07] MEDS ORDERED: FLEXERIL10 MG PO (02:55)
[2017-06-07] MEDS ORDERED: NAPROSYN500 MG PO (02:55)
[2017-06-07 03:05] VITALS: BP 127/87
== END 2017-06-07 03:07 | disposition home or self-care (01) ==
LOC: EME 23:37
DX: R10.84 Generalized abdominal pain (principal); I10 Essential (primary) hypertension; J44.9 Chronic obstructive pulmonary disease, unspecified; K21.9 Gastro-esophageal reflux disease without esophagitis; Z86.73 Personal history of transient ischemic attack (TIA), and cerebral infarction without residual deficits; Z88.0 Allergy status to penicillin; Z87.891 Personal history of nicotine dependence; Z88.1 Allergy status to other antibiotic agents
CPT/HCPCS: 74176; 80053; 81003; 84702; 85027; 99281; 99285; J1885; J2270; J2405; J7050

== ENCOUNTER 2017-06-15 12:04 | Emergency (ER) | payer OTHER ==
[~2017-06-15] VITALS: Ht 149.9 cm; Wt 38.7 kg
[~2017-06-15 12:04] MED LIST changes: +FLEXERIL10 MG PO; +NAPROSYN500 MG PO
[2017-06-15 13:37] VITALS: BP 148/105
== END 2017-06-15 13:37 | disposition home or self-care (01) ==
LOC: EME 12:04
DX: R10.84 Generalized abdominal pain (principal); I10 Essential (primary) hypertension; J44.9 Chronic obstructive pulmonary disease, unspecified; Z86.73 Personal history of transient ischemic attack (TIA), and cerebral infarction without residual deficits; Z87.891 Personal history of nicotine dependence; Z88.0 Allergy status to penicillin
CPT/HCPCS: 99281; 99284; J2270; J2405

== ENCOUNTER → 2017-06-17 | Outpatient (CLI) | payer OTHER | END | disposition home or self-care (01) | LOC: NUC 06:47 | DX: R10.30 Lower abdominal pain, unspecified (principal); R11.2 Nausea with vomiting, unspecified; R63.4 Abnormal weight loss | CPT/HCPCS: 78264; A9541 ==

== ENCOUNTER 2017-09-15 07:25 | Emergency (ER) | payer OTHER ==
[~2017-09-15] VITALS: Ht 149.9 cm; Wt 38.5 kg
[2017-09-15 07:58] LABS: HEMATOCRIT 43.6 % (36.0-46.0); MCH 30.9 PG (29.0-34.0); MCHC 35.3 G/DL (30.0-36.0); MCV 87.6 FL (83-99); MEAN PLAT.VOLUME 10.3 uM^3 (9.5-12.4); PLATELET COUNT 197 K/uL (156-360); RBC DIS.WIDTH-SD 38.7 % (39-53); RED BLOOD COUNT 4.98 M/uL (3.80-5.20); WHITE BLOOD COUNT 9.1 K/uL (4.1-10.2)
[2017-09-15 08:28] LABS: QUANTITATIVE HCG < 4.0 MIU/ML
[2017-09-15 08:30] LABS: ALKALINE PHOSPHATASE 71 IU/L (3-129); ANION GAP 14 MEQ/L (2-14); CHLORIDE 100 MEQ/L (99-109); GFR ESTIMATE (CALCULATED) > 59 mL/min/; GLUCOSE 116 mg/dL (70-99); LIPASE 8 U/L (1.0-51.0); POTASSIUM 3.9 MEQ/L (3.7-5.4); SAMPLE HEMOLYSIS CHECK 0; SAMPLE ICTERIC CHECK 0; SAMPLE LIPEMIA CHECK 0; SODIUM 137 MEQ/L (136-147); TOTAL BILIRUBIN 1.7 MG/DL (0.0-1.0); UREA NITROGEN (BUN) 29 mg/dL (9-23)
[2017-09-15] MEDS ORDERED: ZOFRAN4 MG PO (10:28)
[2017-09-15 10:40] VITALS: BP 119/84
[2017-09-16] MEDS ORDERED: PHENADOZ12.5 MG PR (11:04)
[2017-09-16] MEDS ORDERED: REGLAN10 MG PO (15:40)
== END 2017-09-15 10:47 | disposition home or self-care (01) ==
LOC: EME 07:25
PROVIDERS: Emergency Medicine
DX: R10.84 Generalized abdominal pain (principal); J44.9 Chronic obstructive pulmonary disease, unspecified; I10 Essential (primary) hypertension; K21.9 Gastro-esophageal reflux disease without esophagitis; Z87.891 Personal history of nicotine dependence; Z86.73 Personal history of transient ischemic attack (TIA), and cerebral infarction without residual deficits; Z88.0 Allergy status to penicillin
CPT/HCPCS: 80053; 81003; 83690; 84702; 85027; 93005; 99281; 99285; J2270; J2405; J7030

== ENCOUNTER 2017-09-16 10:19 | Emergency (ER) | payer OTHER ==
[~2017-09-16] VITALS: Ht 149.9 cm; Wt 40.3 kg
[2017-09-16 10:50] LABS: HEMATOCRIT 38.9 % (36.0-46.0); MCH 30.9 PG (29.0-34.0); MCHC 34.7 G/DL (30.0-36.0); MEAN PLAT.VOLUME 10.1 uM^3 (9.5-12.4); PLATELET COUNT 190 K/uL (156-360); RBC DIS.WIDTH-CV 11.9 % (11.8-14.6); RED BLOOD COUNT 4.37 M/uL (3.80-5.20)
[2017-09-16] MEDS ORDERED: PHENADOZ12.5 MG PR (11:04)
[2017-09-16 11:32] LABS: ANION GAP 12 MEQ/L (2-14); CHLORIDE 100 MEQ/L (99-109); POTASSIUM 3.7 MEQ/L (3.7-5.4); SAMPLE HEMOLYSIS CHECK 0; SAMPLE ICTERIC CHECK 0; SAMPLE LIPEMIA CHECK 0; SODIUM 136 MEQ/L (136-147)
[2017-09-16 11:38] LABS: GFR ESTIMATE (CALCULATED) > 59 mL/min/; GLUCOSE 87 mg/dL (70-99); UREA NITROGEN (BUN) 23 mg/dL (9-23)
[2017-09-16 14:03] LABS: ADD MIUA? YES; BILIRUBIN NEGATIVE; BLOOD MODERATE; COLOR STRAW ((YELLOW)); GLUCOSE (STRIP) NEGATIVE; KETONES 20; LEUKOCYTES NEGATIVE; NITRITE NEGATIVE; PROTEIN (STRIP) NEGATIVE; UROBILINOGEN 0.2 MG/DL (0.2-1.0)
[2017-09-16 14:09] LABS: BACTERIA NONE SEEN /HPF; EPITHELIAL CELLS RARE /HPF; MUCUS NONE SEEN /LPF; RED BLOOD CELLS 0-5 /HPF (0-5); UCUL ADDED? NO; WHITE BLOOD CELLS 0-5 /HPF (0-5)
[2017-09-16 14:21] LABS: SPECIFIC GRAVITY 1.063 (1.000-1.030)
[2017-09-16] MEDS ORDERED: REGLAN10 MG PO (15:40)
[2017-09-16 15:55] VITALS: BP 154/120
== END 2017-09-16 15:56 | disposition home or self-care (01) ==
LOC: EME → EDBD 10:19 → EME 15:56
PROVIDERS: Nurse Practitioner Family
DX: R10.9 Unspecified abdominal pain (principal); G89.29 Other chronic pain; R11.2 Nausea with vomiting, unspecified; K21.9 Gastro-esophageal reflux disease without esophagitis; J44.9 Chronic obstructive pulmonary disease, unspecified; I10 Essential (primary) hypertension; Z86.73 Personal history of transient ischemic attack (TIA), and cerebral infarction without residual deficits; Z88.0 Allergy status to penicillin; Z87.891 Personal history of nicotine dependence
CPT/HCPCS: 74177; 80048; 81003; 85027; 99281; 99284; J0500; J2405; J2765

== ENCOUNTER 2017-09-18 12:33 | Observation (INO) | payer OTHER ==
[~2017-09-18] VITALS: Ht 149.9 cm; Wt 42.2 kg
[~2017-09-18 12:33] MED LIST changes: +PHENADOZ12.5 MG PR; +REGLAN10 MG PO
[2017-09-18 13:39] LABS: HEMATOCRIT 43.8 % (36.0-46.0); MCH 30.9 PG (29.0-34.0); MCHC 35.6 G/DL (30.0-36.0); MCV 86.7 FL (83-99); MEAN PLAT.VOLUME 10.2 uM^3 (9.5-12.4); PLATELET COUNT 215 K/uL (156-360); RBC DIS.WIDTH-CV 11.6 % (11.8-14.6); RBC DIS.WIDTH-SD 37.2 % (39-53); RED BLOOD COUNT 5.05 M/uL (3.80-5.20); WHITE BLOOD COUNT 8.4 K/uL (4.1-10.2)
[2017-09-18 13:50] LABS: CHLORIDE 92 mEq/L (99-109); POTASSIUM 3.8 mEq/L (3.7-5.4); SODIUM 130 mEq/L (136-147)
[2017-09-18 13:52] LABS: GLUCOSE 92 mg/dL (70-99)
[2017-09-18 13:53] LABS: ANION GAP 16 MEQ/L (2-14)
[2017-09-18 13:55] LABS: ALKALINE PHOSPHATASE 73 IU/L (3-129); GFR ESTIMATE (CALCULATED) > 59 mL/min/
[2017-09-18 13:57] LABS: UREA NITROGEN (BUN) 21 mg/dL (9-23)
[2017-09-18 14:06] LABS: QUANTITATIVE HCG < 4.0 MIU/ML
[2017-09-18 17:10] LABS: ADD MIUA? YES; BILIRUBIN NEGATIVE; BLOOD SMALL; COLOR YELLOW ((YELLOW)); GLUCOSE (STRIP) NEGATIVE; KETONES 80; LEUKOCYTES NEGATIVE; NITRITE NEGATIVE; PROTEIN (STRIP) 100; SPECIFIC GRAVITY 1.044 (1.000-1.030); UROBILINOGEN 0.2 MG/DL (0.2-1.0)
[2017-09-18 17:16] LABS: BACTERIA RARE /HPF; EPITHELIAL CELLS RARE /HPF; HYALINE CASTS 0-5 /LPF; MUCUS TRACE /LPF; RED BLOOD CELLS 0-5 /HPF (0-5); UCUL ADDED? NO; WHITE BLOOD CELLS 0-5 /HPF (0-5)
[2017-09-18 18:03] LABS: LIPASE 16 U/L (1.0-51.0)
[2017-09-18 18:42] LABS: SERUM ETHYL ALCOHOL < 10 mg/dL
[2017-09-18] MEDS ORDERED: BUSPAR5 MG PO (18:43)
[2017-09-18] MEDS ORDERED: PAROXETINE HCL10 MG PO (18:44)
[2017-09-18] MEDS ORDERED: OMEPRAZOLE40 M1 PO (18:44)
[2017-09-18] MEDS ORDERED: TIZANIDINE HCL4 MG PO (18:44)
[2017-09-18] MEDS ORDERED: SYMBICORT60 INHALAT IH (18:48)
[2017-09-18 19:33] VITALS: BP 166/103
[2017-09-19] VITALS (7 sets, daily range): BP systolic 106–1597; BP diastolic 10–92
[2017-09-19 06:07] LABS: HEMATOCRIT 35.4 % (36.0-46.0); MCHC 34.7 G/DL (30.0-36.0); MCV 89.2 FL (83-99); RBC DIS.WIDTH-CV 11.9 % (11.8-14.6); RBC DIS.WIDTH-SD 38.5 % (39-53); WHITE BLOOD COUNT 4.8 K/uL (4.1-10.2)
[2017-09-19 06:08] LABS: RED BLOOD COUNT 3.97 M/uL (3.80-5.20)
[2017-09-19 06:48] LABS: MEAN PLAT.VOLUME 10.4 uM^3 (9.5-12.4); PLAT.SUFFICIENCY DECREASED
[2017-09-19 06:51] LABS: PLATELET COUNT 149 K/uL (156-360)
[2017-09-19 07:22] LABS: ALKALINE PHOSPHATASE 45 IU/L (3-129); CHLORIDE 103 MEQ/L (99-109); POTASSIUM 3.6 MEQ/L (3.7-5.4); SAMPLE HEMOLYSIS CHECK 0; SAMPLE ICTERIC CHECK 0; SAMPLE LIPEMIA CHECK 0; SODIUM 134 MEQ/L (136-147); TOTAL BILIRUBIN 1.8 MG/DL (0.0-1.0); UREA NITROGEN (BUN) 15 mg/dL (9-23)
[2017-09-19 07:24] LABS: GLUCOSE 59 mg/dL (70-99)
[2017-09-19 08:16] LABS: GFR ESTIMATE (CALCULATED) > 59 mL/min/
[2017-09-19 08:24] LABS: ANION GAP 10 MEQ/L (2-14)
[2017-09-20 08:00] VITALS: BP 122/78
== END 2017-09-20 13:13 | disposition home or self-care (01) ==
LOC: EME 12:33 → EDOF 17:37 → 5WEST 17:37 → EDOF 17:37 → ENRESERV 17:50 → 5WEST 19:25
PROVIDERS: Hospitalist
DX: K29.70 Gastritis, unspecified, without bleeding (principal); E87.6 Hypokalemia; R19.7 Diarrhea, unspecified; E86.0 Dehydration; J44.9 Chronic obstructive pulmonary disease, unspecified; I10 Essential (primary) hypertension; R53.1 Weakness; F10.11 Alcohol abuse, in remission; Z87.891 Personal history of nicotine dependence; Z82.5 Family history of asthma and other chronic lower respiratory diseases; Z88.0 Allergy status to penicillin
CPT/HCPCS: 74177; 80053; 80306 90; 81003; 83690; 84702; 85027; 87177; 87493; 94640; 94640 76; 99202; 99281; 99285; C9113; G0378; G0480; J0360; J1650; J1885; J2270; J2405; J3010; J7030

== ENCOUNTER 2017-12-16 12:10 | Emergency (ER) | payer OTHER ==
[~2017-12-16] VITALS: Ht 149.9 cm; Wt 42.1 kg
[~2017-12-16 12:10] MED LIST changes: +BUSPAR5 MG PO; +PAROXETINE HCL10 MG PO; +TIZANIDINE HCL4 MG PO
[2017-12-16 12:31] LABS: HEMATOCRIT 45.6 % (36.0-46.0); HEMOGLOBIN 16.3 G/DL (11.9-15.5); MCH 31.5 PG (29.0-34.0); MCHC 35.7 G/DL (30.0-36.0); PLATELET COUNT 183 K/uL (156-360); RBC DIS.WIDTH-CV 12.9 % (11.8-14.6); RBC DIS.WIDTH-SD 42.3 % (39-53); RED BLOOD COUNT 5.18 M/uL (3.80-5.20); WHITE BLOOD COUNT 11.4 K/uL (4.1-10.2)
[2017-12-16 12:45] LABS: ALBUMIN 4.9 g/dL (3.2-4.8)
[2017-12-16 12:46] LABS: CHLORIDE 101 mEq/L (99-109); POTASSIUM 3.9 mEq/L (3.7-5.4); SODIUM 137 mEq/L (136-147)
[2017-12-16 12:48] LABS: GLUCOSE 111 mg/dL (70-99); TOTAL PROTEIN 8.3 g/dL (6.4-8.3)
[2017-12-16 12:50] LABS: TOTAL BILIRUBIN 1.8 mg/dL (0.0-1.0)
[2017-12-16 12:51] LABS: ALKALINE PHOSPHATASE 88 IU/L (3-129)
[2017-12-16 12:52] LABS: CREATININE 1.1 mg/dL (0.6-1.3); GFR ESTIMATE (CALCULATED) 55 mL/min/
[2017-12-16 12:53] LABS: AST (GOT) 38 IU/L (2-34); UREA NITROGEN (BUN) 26 mg/dL (9-23)
[2017-12-16 12:55] LABS: ALT (GPT) 24 IU/L (3-49); LIPASE 9 U/L (1.0-51.0)
[2017-12-16 13:02] LABS: QUANTITATIVE HCG < 4.0 MIU/ML
[2017-12-16 15:00] LABS: DIRECT BILIRUBIN 0.6 mg/dL (0.0-0.3)
[2017-12-16 15:48] LABS: APPEARANCE SL.HAZY ((CLEAR)); BILIRUBIN NEGATIVE; BLOOD MODERATE; COLOR YELLOW ((YELLOW)); GLUCOSE (STRIP) NEGATIVE; KETONES 20; LEUKOCYTES NEGATIVE; NITRITE NEGATIVE; PROTEIN (STRIP) 100; UROBILINOGEN 0.2 MG/DL (0.2-1.0)
[2017-12-16 15:59] LABS: BACTERIA RARE /HPF; EPITHELIAL CELLS RARE /HPF; MUCUS 2+ /LPF; RED BLOOD CELLS 0-5 /HPF (0-5); UCUL ADDED? NO; WHITE BLOOD CELLS 0-5 /HPF (0-5)
[2017-12-16] MEDS ORDERED: PHENERGAN12.5 MG PR (18:56)
[2017-12-16] MEDS ORDERED: LEVSIN-SL0.125 MG SL (18:56)
[2017-12-16] MEDS ORDERED: ZOFRAN ODT4 MG PO (18:56)
[2017-12-16 19:50] VITALS: BP 150/94
[2017-12-17] MEDS ORDERED: LISINOPRIL10 MG PO (07:38)
== END 2017-12-16 20:16 | disposition home or self-care (01) ==
LOC: EME 12:10
DX: R11.2 Nausea with vomiting, unspecified (principal); E86.0 Dehydration; I10 Essential (primary) hypertension; K21.9 Gastro-esophageal reflux disease without esophagitis; J44.9 Chronic obstructive pulmonary disease, unspecified; F32.9 Major depressive disorder, single episode, unspecified; F41.9 Anxiety disorder, unspecified; Z86.73 Personal history of transient ischemic attack (TIA), and cerebral infarction without residual deficits; Z88.0 Allergy status to penicillin; Z87.891 Personal history of nicotine dependence
CPT/HCPCS: 80053; 81003; 82248; 83690; 84702; 85027; 99281; 99285; J2405; J7030

== ENCOUNTER 2017-12-17 07:02 | Emergency (ER) | payer OTHER ==
[~2017-12-17] VITALS: Ht 149.9 cm; Wt 43.2 kg
[~2017-12-17 07:02] MED LIST changes: +LEVSIN-SL0.125 MG SL; +ZOFRAN ODT4 MG PO
[2017-12-17] MEDS ORDERED: LISINOPRIL10 MG PO (07:38)
[2017-12-17 07:48] LABS: BASOPHIL (%) 0.4 % (0-1); EOSINOPHIL (%) 0.3 % (0-5); HEMATOCRIT 43.6 % (36.0-46.0); HEMOGLOBIN 15.4 G/DL (11.9-15.5); IMMATURE GRANULOCYTE (%) 0.5 % (0.0-0.7); LYMPHOCYTE (%) 14.2 % (15-42); LYMPHOCYTE COUNT 1.1 K/uL (1.0-2.8); MCH 31.2 PG (29.0-34.0); MCHC 35.3 G/DL (30.0-36.0); MCV 88.4 FL (83-99); MONOCYTE (%) 5.8 % (3-12); MONOCYTE COUNT 0.4 K/uL (0-0.8); NEUTROPHIL (%) 78.8 % (45-76); NEUTROPHIL COUNT 5.9 K/uL (1.8-6.4); PLATELET COUNT 160 K/uL (156-360); RBC DIS.WIDTH-CV 12.7 % (11.8-14.6); RBC DIS.WIDTH-SD 41.4 % (39-53); RED BLOOD COUNT 4.93 M/uL (3.80-5.20); WHITE BLOOD COUNT 7.5 K/uL (4.1-10.2)
[2017-12-17 08:14] LABS: ALBUMIN 4.5 g/dL (3.2-4.8); CHLORIDE 100 mEq/L (99-109); SODIUM 134 mEq/L (136-147)
[2017-12-17 08:16] LABS: GLUCOSE 88 mg/dL (70-99); TOTAL PROTEIN 7.6 g/dL (6.4-8.3)
[2017-12-17 08:19] LABS: SERUM ETHYL ALCOHOL < 10 mg/dL
[2017-12-17 08:20] LABS: ALKALINE PHOSPHATASE 80 IU/L (3-129); CREATININE 0.8 mg/dL (0.6-1.3); GFR ESTIMATE (CALCULATED) > 59 mL/min/; TOTAL BILIRUBIN 2.2 mg/dL (0.0-1.0)
[2017-12-17 08:21] LABS: UREA NITROGEN (BUN) 15 mg/dL (9-23)
[2017-12-17 08:22] LABS: AST (GOT) 61 IU/L (2-34)
[2017-12-17 08:23] LABS: ALT (GPT) 31 IU/L (3-49); LIPASE 9 U/L (1.0-51.0)
[2017-12-17 09:00] LABS: APPEARANCE CLEAR ((CLEAR)); BILIRUBIN NEGATIVE; BLOOD MODERATE; COLOR STRAW ((YELLOW)); GLUCOSE (STRIP) NEGATIVE; KETONES 20; LEUKOCYTES NEGATIVE; NITRITE NEGATIVE; PROTEIN (STRIP) NEGATIVE; SPECIFIC GRAVITY 1.018 (1.000-1.030); UROBILINOGEN 0.2 MG/DL (0.2-1.0)
[2017-12-17 09:08] LABS: AMPHETAMINE NEGATIVE (500 ng/mL); BARBITURATES NEGATIVE (200 ng/mL); BENZODIAZEPINES NEGATIVE (150 ng/mL); BUPRENORPHINE NEGATIVE (10 ng/mL); COCAINE NEGATIVE (150 ng/mL); METHADONE NEGATIVE (200 ng/mL); METHAMPHETAMINE NEGATIVE (500 ng/mL); OPIATES (MORPHINE) PRESUMPTIVE POSITIVE (100 ng/mL); OXYCODONE NEGATIVE (100 ng/mL); PHENCYCLIDINE NEGATIVE (25 ng/mL); PROPOXYPHENE NEGATIVE (300 ng/mL); THC CANNABINOIDS PRESUMPTIVE POSITIVE (50 ng/mL); TRICYCLIC ANTIDEPRESSANTS NEGATIVE (300 ng/mL)
[2017-12-17 09:11] LABS: BACTERIA NONE SEEN /HPF; EPITHELIAL CELLS RARE /HPF; MUCUS TRACE /LPF; RED BLOOD CELLS 0-5 /HPF (0-5); UCUL ADDED? NO; WHITE BLOOD CELLS 0-5 /HPF (0-5)
[2017-12-17 15:25] VITALS: BP 127/98
== END 2017-12-17 15:30 | disposition home or self-care (01) ==
LOC: EME 07:02
PROVIDERS: Emergency Medicine
DX: R10.31 Right lower quadrant pain (principal); R11.2 Nausea with vomiting, unspecified; F12.10 Cannabis abuse, uncomplicated; I10 Essential (primary) hypertension; J44.9 Chronic obstructive pulmonary disease, unspecified; K21.9 Gastro-esophageal reflux disease without esophagitis; F41.9 Anxiety disorder, unspecified; F32.9 Major depressive disorder, single episode, unspecified; Z87.891 Personal history of nicotine dependence; Z86.73 Personal history of transient ischemic attack (TIA), and cerebral infarction without residual deficits; Z88.0 Allergy status to penicillin
CPT/HCPCS: 74177; 80053; 81003; 83690; 84999; 85025; 99281; 99285; G0480; J1630; J2270; J2405; J7030

== ENCOUNTER 2017-12-20 11:57 | Emergency (ER) | payer OTHER ==
[~2017-12-20] VITALS: Ht 149.9 cm; Wt 39.6 kg
[~2017-12-20 11:57] MED LIST changes: +LISINOPRIL10 MG PO
[2017-12-20 12:32] LABS: HEMATOCRIT 43.6 % (36.0-46.0); HEMOGLOBIN 15.9 G/DL (11.9-15.5); MCH 31.5 PG (29.0-34.0); MCHC 36.5 G/DL (30.0-36.0); MCV 86.5 FL (83-99); PLATELET COUNT 202 K/uL (156-360); RBC DIS.WIDTH-CV 11.9 % (11.8-14.6); RED BLOOD COUNT 5.04 M/uL (3.80-5.20); WHITE BLOOD COUNT 6.7 K/uL (4.1-10.2)
[2017-12-20 12:48] LABS: ALBUMIN 4.3 g/dL (3.2-4.8); CHLORIDE 95 mEq/L (99-109); POTASSIUM 3.6 mEq/L (3.7-5.4); SODIUM 132 mEq/L (136-147)
[2017-12-20 12:51] LABS: GLUCOSE 88 mg/dL (70-99); TOTAL PROTEIN 7.2 g/dL (6.4-8.3)
[2017-12-20 12:54] LABS: ALKALINE PHOSPHATASE 76 IU/L (3-129); CREATININE 0.8 mg/dL (0.6-1.3); GFR ESTIMATE (CALCULATED) > 59 mL/min/; TOTAL BILIRUBIN 3.3 mg/dL (0.0-1.0)
[2017-12-20 12:55] LABS: UREA NITROGEN (BUN) 22 mg/dL (9-23)
[2017-12-20 12:57] LABS: ALT (GPT) 27 IU/L (3-49)
[2017-12-20 12:58] LABS: AST (GOT) 30 IU/L (2-34); LIPASE 12 U/L (1.0-51.0)
[2017-12-20] MEDS ORDERED: CAPSAICIN57 GM TP (13:27)
[2017-12-20] MEDS ORDERED: HALDOL5 MG PO (13:27)
[2017-12-20 14:25] VITALS: BP 122/83
== END 2017-12-20 14:28 | disposition home or self-care (01) ==
LOC: EME 11:57
PROVIDERS: Emergency Medicine Emergency Medical Services
DX: R11.2 Nausea with vomiting, unspecified (principal); F12.90 Cannabis use, unspecified, uncomplicated; R10.10 Upper abdominal pain, unspecified; K21.9 Gastro-esophageal reflux disease without esophagitis; J44.9 Chronic obstructive pulmonary disease, unspecified; I10 Essential (primary) hypertension; F41.9 Anxiety disorder, unspecified; F32.9 Major depressive disorder, single episode, unspecified; Z87.891 Personal history of nicotine dependence; Z86.73 Personal history of transient ischemic attack (TIA), and cerebral infarction without residual deficits; Z88.0 Allergy status to penicillin
CPT/HCPCS: 80053; 83690; 85027; 99281; 99284; J0780; J1630; J2270; J7040

== ENCOUNTER 2017-12-27 09:30 | Inpatient (IN) | payer OTHER ==
[~2017-12-27] VITALS: Ht 149.9 cm; Wt 44.0 kg
[~2017-12-27 09:30] MED LIST changes: +CAPSAICIN57 GM TP; +HALDOL5 MG PO
[2017-12-27 10:08] LABS: BASOPHIL (%) 0.6 % (0-1); BASOPHIL COUNT 0.1 K/uL (0-0.1); EOSINOPHIL (%) 0.1 % (0-5); HEMATOCRIT 43.8 % (36.0-46.0); HEMOGLOBIN 15.3 G/DL (11.9-15.5); IMMATURE GRANULOCYTE (%) 0.4 % (0.0-0.7); LYMPHOCYTE (%) 15.8 % (15-42); LYMPHOCYTE COUNT 1.6 K/uL (1.0-2.8); MCHC 34.9 G/DL (30.0-36.0); MCV 88.7 FL (83-99); MONOCYTE (%) 5.4 % (3-12); MONOCYTE COUNT 0.5 K/uL (0-0.8); NEUTROPHIL (%) 77.7 % (45-76); NEUTROPHIL COUNT 7.7 K/uL (1.8-6.4); PLATELET COUNT 199 K/uL (156-360); RBC DIS.WIDTH-CV 12.6 % (11.8-14.6); RED BLOOD COUNT 4.94 M/uL (3.80-5.20); WHITE BLOOD COUNT 9.9 K/uL (4.1-10.2)
[2017-12-27 10:36] LABS: CHLORIDE 101 mEq/L (99-109); SODIUM 136 mEq/L (136-147)
[2017-12-27 10:38] LABS: GLUCOSE 126 mg/dL (70-99); TOTAL PROTEIN 6.5 g/dL (6.4-8.3)
[2017-12-27 10:41] LABS: ALKALINE PHOSPHATASE 59 IU/L (3-129)
[2017-12-27 10:42] LABS: CREATININE 0.8 mg/dL (0.6-1.3); GFR ESTIMATE (CALCULATED) > 59 mL/min/; POTASSIUM 2.8 mEq/L (3.7-5.4); TOTAL BILIRUBIN 1.1 mg/dL (0.0-1.0)
[2017-12-27 10:43] LABS: UREA NITROGEN (BUN) 17 mg/dL (9-23)
[2017-12-27 10:44] LABS: ALT (GPT) 16 IU/L (3-49); AST (GOT) 16 IU/L (2-34)
[2017-12-27 10:45] LABS: LIPASE 27 U/L (1.0-51.0)
[2017-12-27 10:51] LABS: QUANTITATIVE HCG < 4.0 MIU/ML
[2017-12-27 11:00] LABS: APPEARANCE CLEAR ((CLEAR)); BILIRUBIN NEGATIVE; BLOOD SMALL; COLOR YELLOW ((YELLOW)); GLUCOSE (STRIP) NEGATIVE; KETONES NEGATIVE; LEUKOCYTES NEGATIVE; NITRITE NEGATIVE; PROTEIN (STRIP) NEGATIVE; SPECIFIC GRAVITY 1.014 (1.000-1.030); UROBILINOGEN 0.2 MG/DL (0.2-1.0)
[2017-12-27 11:06] LABS: BACTERIA NONE SEEN /HPF; EPITHELIAL CELLS NONE SEEN /HPF; MUCUS TRACE /LPF; RED BLOOD CELLS 0-5 /HPF (0-5); WHITE BLOOD CELLS 0-5 /HPF (0-5)
[2017-12-27 14:38] VITALS: BP 170/91
[2017-12-27 16:29] VITALS: BP 124/71
[2017-12-27 20:00] VITALS: BP 136/85
[2017-12-27 23:08] VITALS: BP 128/75
[2017-12-28 05:41] LABS: HEMATOCRIT 40.1 % (36.0-46.0); HEMOGLOBIN 13.4 G/DL (11.9-15.5); MCH 30.4 PG (29.0-34.0); MCHC 33.4 G/DL (30.0-36.0); MCV 90.9 FL (83-99); PLATELET COUNT 227 K/uL (156-360); RBC DIS.WIDTH-CV 12.5 % (11.8-14.6); RBC DIS.WIDTH-SD 41.1 % (39-53); RED BLOOD COUNT 4.41 M/uL (3.80-5.20); WHITE BLOOD COUNT 7.5 K/uL (4.1-10.2)
[2017-12-28 06:08] LABS: ALBUMIN 3.9 G/DL (3.2-4.8); ALKALINE PHOSPHATASE 48 IU/L (3-129); ALT (GPT) 12 IU/L (3-49); AST (GOT) 13 IU/L (2-34); CHLORIDE 101 MEQ/L (99-109); CREATININE 0.8 MG/DL (0.6-1.3); GFR ESTIMATE (CALCULATED) > 59 mL/min/; GLUCOSE 116 mg/dL (70-99); POTASSIUM 3.8 MEQ/L (3.7-5.4); SODIUM 139 MEQ/L (136-147); TOTAL BILIRUBIN 1.1 MG/DL (0.0-1.0); UREA NITROGEN (BUN) 8 mg/dL (9-23)
[2017-12-28 06:41] VITALS: BP 156/96
[2017-12-28] MEDS ORDERED: THERAGEN60 GM TP (11:01)
[2017-12-28] MEDS ORDERED: HALDOL5 MG PO (11:02)
[2017-12-28] MEDS ORDERED: BENTYL10 MG PO (11:04)
[2017-12-28] MEDS ORDERED: PAXIL10 MG PO (11:04)
[2017-12-28] MEDS ORDERED: PREDNISONE10 M1 PO (11:25)
[2017-12-28 16:10] VITALS: BP 148/71
[2017-12-28 19:00] VITALS: BP 135/86
[2017-12-29 00:30] VITALS: BP 114/80
[2017-12-29 06:26] LABS: BASOPHIL (%) 1.6 % (0-1); BASOPHIL COUNT 0.1 K/uL (0-0.1); HEMATOCRIT 36.1 % (36.0-46.0); HEMOGLOBIN 12.2 G/DL (11.9-15.5); IMMATURE GRANULOCYTE (%) 0.3 % (0.0-0.7); LYMPHOCYTE (%) 22.8 % (15-42); LYMPHOCYTE COUNT 0.9 K/uL (1.0-2.8); MCH 30.2 PG (29.0-34.0); MCHC 33.8 G/DL (30.0-36.0); MCV 89.4 FL (83-99); MONOCYTE (%) 9.1 % (3-12); MONOCYTE COUNT 0.4 K/uL (0-0.8); NEUTROPHIL (%) 65.2 % (45-76); NEUTROPHIL COUNT 2.5 K/uL (1.8-6.4); PLATELET COUNT 195 K/uL (156-360); RBC DIS.WIDTH-CV 12.3 % (11.8-14.6); RBC DIS.WIDTH-SD 40.5 % (39-53); RED BLOOD COUNT 4.04 M/uL (3.80-5.20); WHITE BLOOD COUNT 3.9 K/uL (4.1-10.2)
[2017-12-29 06:50] LABS: CHLORIDE 102 MEQ/L (99-109); CREATININE 0.8 MG/DL (0.6-1.3); GFR ESTIMATE (CALCULATED) > 59 mL/min/; GLUCOSE 96 mg/dL (70-99); POTASSIUM 3.6 MEQ/L (3.7-5.4); SODIUM 135 MEQ/L (136-147); UREA NITROGEN (BUN) 6 mg/dL (9-23)
[2017-12-29 07:34] VITALS: BP 131/83
[2017-12-29 11:45] VITALS: BP 128/71
[2017-12-29 23:37] VITALS: BP 169/92
[2017-12-30 05:53] LABS: BASOPHIL (%) 0 % (0-1); EOSINOPHIL (%) 0 % (0-5); HEMATOCRIT 34.9 % (36.0-46.0); HEMOGLOBIN 12.1 G/DL (11.9-15.5); IMMATURE GRANULOCYTE (%) 0.6 % (0.0-0.7); LYMPHOCYTE (%) 5.5 % (15-42); LYMPHOCYTE COUNT 0.4 K/uL (1.0-2.8); MCH 30.6 PG (29.0-34.0); MCHC 34.7 G/DL (30.0-36.0); MCV 88.1 FL (83-99); MONOCYTE (%) 3.8 % (3-12); MONOCYTE COUNT 0.3 K/uL (0-0.8); NEUTROPHIL (%) 90.1 % (45-76); NEUTROPHIL COUNT 6.4 K/uL (1.8-6.4); PLATELET COUNT 220 K/uL (156-360); RBC DIS.WIDTH-CV 12.1 % (11.8-14.6); RBC DIS.WIDTH-SD 39.3 % (39-53); RED BLOOD COUNT 3.96 M/uL (3.80-5.20); WHITE BLOOD COUNT 7.1 K/uL (4.1-10.2)
[2017-12-30 06:15] LABS: ALBUMIN 3.4 G/DL (3.2-4.8); ALKALINE PHOSPHATASE 45 IU/L (3-129); ALT (GPT) 10 IU/L (3-49); AST (GOT) 10 IU/L (2-34); CHLORIDE 100 MEQ/L (99-109); CREATININE 0.8 MG/DL (0.6-1.3); GFR ESTIMATE (CALCULATED) > 59 mL/min/; GLUCOSE 131 mg/dL (70-99); POTASSIUM 3.9 MEQ/L (3.7-5.4); SODIUM 134 MEQ/L (136-147); TOTAL BILIRUBIN 1.1 MG/DL (0.0-1.0); TOTAL PROTEIN 5.3 G/DL (6.4-8.3); UREA NITROGEN (BUN) 9 mg/dL (9-23)
[2017-12-30 07:43] VITALS: BP 138/77
[2017-12-30 10:51] VITALS: BP 124/72
[2017-12-30 16:01] VITALS: BP 96/57
[2017-12-30 16:24] VITALS: BP 108/68
== END 2017-12-30 18:16 | disposition home or self-care (01) | DRG 446 ==
LOC: EME 09:30 → EDOF 13:01 → 5WEST 13:01 → ENRESERV 13:02 → 5WEST 14:17 → ENRESERV 12-28 19:37 → 5WEST 12-28 19:46
PROVIDERS: Emergency Medicine; Family Medicine; Internal Medicine Gastroenterology
PROC: 0FJB8ZZ Inspection of Hepatobiliary Duct, Via Natural or Artificial Opening Endoscopic (ICD-10-PCS; principal; 2017-12-29)
DX: K83.1 Obstruction of bile duct (principal); K83.8 Other specified diseases of biliary tract; K63.89 Other specified diseases of intestine; E87.6 Hypokalemia; I10 Essential (primary) hypertension; J44.9 Chronic obstructive pulmonary disease, unspecified; K21.9 Gastro-esophageal reflux disease without esophagitis; K29.70 Gastritis, unspecified, without bleeding; G89.29 Other chronic pain; F41.9 Anxiety disorder, unspecified; F32.9 Major depressive disorder, single episode, unspecified; F12.10 Cannabis abuse, uncomplicated; F17.210 Nicotine dependence, cigarettes, uncomplicated; Z88.0 Allergy status to penicillin; Z86.73 Personal history of transient ischemic attack (TIA), and cerebral infarction without residual deficits
CPT/HCPCS: 74328; 80048; 80053; 81003; 83690; 84132 91; 84702; 85025; 85027; 87081; 94640; 94640 76; 99281; 99285; C1757; C1769; G0378; J1100; J1170; J1650; J2250; J2270; J2405; J3480; J7030; J7042; J7050; J7120; S0028

== ENCOUNTER 2018-01-03 08:37 | Emergency (ER) | payer OTHER ==
[~2018-01-03] VITALS: Ht 149.9 cm; Wt 38.8 kg
[~2018-01-03 08:37] MED LIST changes: +BENTYL10 MG PO; +PAXIL10 MG PO; +PREDNISONE10 M1 PO; +THERAGEN60 GM TP
[2018-01-03 09:27] LABS: HEMATOCRIT 43.4 % (36.0-46.0); MCH 31.5 PG (29.0-34.0); MCHC 35.7 G/DL (30.0-36.0); MCV 88.2 FL (83-99); PLATELET COUNT 220 K/uL (156-360); RBC DIS.WIDTH-CV 12.2 % (11.8-14.6); RBC DIS.WIDTH-SD 39.7 % (39-53); WHITE BLOOD COUNT 4.6 K/uL (4.1-10.2)
[2018-01-03 09:28] LABS: HEMOGLOBIN 15.5 G/DL (11.9-15.5); RED BLOOD COUNT 4.92 M/uL (3.80-5.20)
[2018-01-03 09:29] LABS: CHLORIDE 99 mEq/L (99-109); POTASSIUM 3.8 mEq/L (3.7-5.4); SODIUM 133 mEq/L (136-147)
[2018-01-03 09:31] LABS: GLUCOSE 90 mg/dL (70-99); TOTAL PROTEIN 6.5 g/dL (6.4-8.3)
[2018-01-03 09:33] LABS: APPEARANCE SL.HAZY ((CLEAR)); BILIRUBIN NEGATIVE; BLOOD SMALL; COLOR YELLOW ((YELLOW)); GLUCOSE (STRIP) NEGATIVE; KETONES 80; LEUKOCYTES NEGATIVE; NITRITE NEGATIVE; PROTEIN (STRIP) 30; SPECIFIC GRAVITY 1.028 (1.000-1.030)
[2018-01-03 09:35] LABS: ALKALINE PHOSPHATASE 59 IU/L (3-129); CREATININE 0.8 mg/dL (0.6-1.3); GFR ESTIMATE (CALCULATED) > 59 mL/min/
[2018-01-03 09:36] LABS: UREA NITROGEN (BUN) 17 mg/dL (9-23)
[2018-01-03 09:37] LABS: AST (GOT) 18 IU/L (2-34)
[2018-01-03 09:38] LABS: ALT (GPT) 18 IU/L (3-49)
[2018-01-03 09:43] LABS: QUANTITATIVE HCG < 4.0 MIU/ML
[2018-01-03 09:45] LABS: BACTERIA NONE SEEN /HPF; EPITHELIAL CELLS 1+ /HPF; MUCUS 3+ /LPF; RED BLOOD CELLS 0-5 /HPF (0-5); UCUL ADDED? NO; WHITE BLOOD CELLS 0-5 /HPF (0-5)
[2018-01-03 09:47] LABS: TOTAL BILIRUBIN 2.8 mg/dL (0.0-1.0)
[2018-01-03 10:24] LABS: LIPASE 18 U/L (1.0-51.0)
[2018-01-03 11:22] VITALS: BP 131/91
== END 2018-01-03 11:24 | disposition home or self-care (01) ==
LOC: EME 08:37
DX: R10.9 Unspecified abdominal pain (principal); E86.0 Dehydration; K21.9 Gastro-esophageal reflux disease without esophagitis; Z86.73 Personal history of transient ischemic attack (TIA), and cerebral infarction without residual deficits; J44.9 Chronic obstructive pulmonary disease, unspecified; I10 Essential (primary) hypertension; F41.9 Anxiety disorder, unspecified; F32.9 Major depressive disorder, single episode, unspecified; Z88.0 Allergy status to penicillin; Z87.891 Personal history of nicotine dependence
CPT/HCPCS: 80053; 81003; 83690; 84702; 85027; 99281; 99285

== ENCOUNTER 2018-03-29 10:34 | Emergency (ER) | payer OTHER ==
[~2018-03-29] VITALS: Ht 180.3 cm; Wt 43.4 kg
[2018-03-29 12:07] VITALS: BP 138/80
== END 2018-03-29 12:09 | disposition home or self-care (01) ==
LOC: EME 10:34
DX: S93.602A Unspecified sprain of left foot, initial encounter (principal); W10.9XXA Fall (on) (from) unspecified stairs and steps, initial encounter; Y92.811 Bus as the place of occurrence of the external cause; Z88.0 Allergy status to penicillin
CPT/HCPCS: 73630; 99281; 99283

== ENCOUNTER 2018-04-10 19:39 | Emergency (ER) | payer OTHER ==
[~2018-04-10] VITALS: Ht 149.9 cm; Wt 41.0 kg
[2018-04-10 19:53] LABS: HEMATOCRIT 42.3 % (36.0-46.0); HEMOGLOBIN 15.1 G/DL (11.9-15.5); MCH 31.3 PG (29.0-34.0); MCHC 35.7 G/DL (30.0-36.0); MCV 87.8 FL (83-99); PLATELET COUNT 169 K/uL (156-360); RBC DIS.WIDTH-CV 11.7 % (11.8-14.6); RBC DIS.WIDTH-SD 37.9 % (39-53); RED BLOOD COUNT 4.82 M/uL (3.80-5.20); WHITE BLOOD COUNT 7.8 K/uL (4.1-10.2)
[2018-04-10 20:17] LABS: ALBUMIN 4.4 g/dL (3.2-4.8)
[2018-04-10 20:18] LABS: CHLORIDE 101 mEq/L (99-109); POTASSIUM 3.5 mEq/L (3.7-5.4); SODIUM 138 mEq/L (136-147)
[2018-04-10 20:20] LABS: GLUCOSE 147 mg/dL (70-99); TOTAL PROTEIN 7.1 g/dL (6.4-8.3)
[2018-04-10 20:22] LABS: TOTAL BILIRUBIN 1.6 mg/dL (0.0-1.0)
[2018-04-10 20:23] LABS: ALKALINE PHOSPHATASE 72 IU/L (3-129)
[2018-04-10 20:24] LABS: CREATININE 0.8 mg/dL (0.6-1.3); GFR ESTIMATE (CALCULATED) > 59 mL/min/
[2018-04-10 20:25] LABS: AST (GOT) 20 IU/L (2-34); UREA NITROGEN (BUN) 10 mg/dL (9-23)
[2018-04-10 20:26] LABS: ALT (GPT) 16 IU/L (3-49)
[2018-04-10 20:27] LABS: LIPASE 9 U/L (1.0-51.0)
[2018-04-10 20:32] LABS: QUANTITATIVE HCG < 4.0 MIU/ML
[2018-04-10 21:22] LABS: APPEARANCE CLEAR ((CLEAR)); BILIRUBIN NEGATIVE; BLOOD SMALL; COLOR COLORLESS ((YELLOW)); GLUCOSE (STRIP) 150; KETONES 20; LEUKOCYTES NEGATIVE; NITRITE NEGATIVE; PROTEIN (STRIP) NEGATIVE; UROBILINOGEN 0.2 MG/DL (0.2-1.0)
[2018-04-10 21:25] LABS: BACTERIA NONE SEEN /HPF; EPITHELIAL CELLS NONE SEEN /HPF; MUCUS TRACE /LPF; RED BLOOD CELLS 0-5 /HPF (0-5); UCUL ADDED? NO; WHITE BLOOD CELLS 0-5 /HPF (0-5)
[2018-04-10] MEDS ORDERED: CARAFATE1 GM PO (22:13)
[2018-04-10] MEDS ORDERED: NORCO 5/3251 TABLET PO (22:13)
[2018-04-10] MEDS ORDERED: PROMETHAZINE HC25 M1 PO (22:13)
[2018-04-10 23:22] VITALS: BP 146/98
== END 2018-04-10 23:23 | disposition home or self-care (01) ==
LOC: EME → EDBD 19:39 → EME 19:39
DX: R10.13 Epigastric pain (principal); R11.2 Nausea with vomiting, unspecified; Z88.0 Allergy status to penicillin; Z87.891 Personal history of nicotine dependence
CPT/HCPCS: 74176; 80053; 81003; 83690; 84702; 85027; 99281; 99282; J2765; J3010; J7030

== ENCOUNTER 2018-04-12 09:46 | Emergency (ER) | payer OTHER ==
[~2018-04-12] VITALS: Ht 149.9 cm; Wt 43.9 kg
[~2018-04-12 09:46] MED LIST changes: +NORCO 5/3251 TABLET PO; +PROMETHAZINE HC25 M1 PO
[2018-04-12 10:28] LABS: BASOPHIL (%) 0.5 % (0-1); EOSINOPHIL (%) 0.3 % (0-5); HEMATOCRIT 43.1 % (36.0-46.0); HEMOGLOBIN 15.2 G/DL (11.9-15.5); IMMATURE GRANULOCYTE (%) 0.4 % (0.0-0.7); LYMPHOCYTE (%) 12.4 % (15-42); MCH 31.1 PG (29.0-34.0); MCHC 35.3 G/DL (30.0-36.0); MCV 88.3 FL (83-99); MONOCYTE (%) 6.6 % (3-12); MONOCYTE COUNT 0.5 K/uL (0-0.8); NEUTROPHIL (%) 79.8 % (45-76); NEUTROPHIL COUNT 6.1 K/uL (1.8-6.4); PLATELET COUNT 189 K/uL (156-360); RBC DIS.WIDTH-SD 38.6 % (39-53); RED BLOOD COUNT 4.88 M/uL (3.80-5.20); WHITE BLOOD COUNT 7.7 K/uL (4.1-10.2)
[2018-04-12 10:38] LABS: ALBUMIN 4.5 g/dL (3.2-4.8); CHLORIDE 97 mEq/L (99-109)
[2018-04-12 10:39] LABS: POTASSIUM 3.5 mEq/L (3.7-5.4); SODIUM 137 mEq/L (136-147)
[2018-04-12 10:41] LABS: TOTAL PROTEIN 7.3 g/dL (6.4-8.3)
[2018-04-12 10:43] LABS: TOTAL BILIRUBIN 1.8 mg/dL (0.0-1.0)
[2018-04-12 10:44] LABS: ALKALINE PHOSPHATASE 71 IU/L (3-129); CREATININE 0.8 mg/dL (0.6-1.3); GFR ESTIMATE (CALCULATED) > 59 mL/min/
[2018-04-12 10:46] LABS: AST (GOT) 20 IU/L (2-34); GLUCOSE 101 mg/dL (70-99); UREA NITROGEN (BUN) 17 mg/dL (9-23)
[2018-04-12 10:47] LABS: ALT (GPT) 16 IU/L (3-49)
[2018-04-12 10:48] LABS: LIPASE 12 U/L (1.0-51.0)
[2018-04-12] MEDS ORDERED: ZOFRAN4 MG PO (13:02)
[2018-04-12 13:12] VITALS: BP 175/101
[2018-04-13] MEDS ORDERED: REGLAN5 MG PO (20:08)
== END 2018-04-12 13:12 | disposition home or self-care (01) ==
LOC: EME 09:46
PROVIDERS: Emergency Medicine
DX: J40 Bronchitis, not specified as acute or chronic (principal); R11.2 Nausea with vomiting, unspecified; R19.7 Diarrhea, unspecified; R10.84 Generalized abdominal pain; J44.9 Chronic obstructive pulmonary disease, unspecified; I10 Essential (primary) hypertension; Z86.73 Personal history of transient ischemic attack (TIA), and cerebral infarction without residual deficits; Z88.0 Allergy status to penicillin; Z87.891 Personal history of nicotine dependence
CPT/HCPCS: 71045; 80053; 83690; 85025; 94640; 99281; 99285; J1885; J2405; J7030

== ENCOUNTER 2018-04-13 15:24 | Emergency (ER) | payer OTHER ==
[~2018-04-13] VITALS: Ht 149.9 cm; Wt 38.9 kg
[2018-04-13 17:20] LABS: BASOPHIL (%) 0.8 % (0-1); BASOPHIL COUNT 0.1 K/uL (0-0.1); EOSINOPHIL (%) 0.1 % (0-5); HEMATOCRIT 44.9 % (36.0-46.0); HEMOGLOBIN 16.2 G/DL (11.9-15.5); IMMATURE GRANULOCYTE (%) 0.3 % (0.0-0.7); LYMPHOCYTE (%) 18.2 % (15-42); LYMPHOCYTE COUNT 1.4 K/uL (1.0-2.8); MCH 31.4 PG (29.0-34.0); MCHC 36.1 G/DL (30.0-36.0); MONOCYTE (%) 8.2 % (3-12); MONOCYTE COUNT 0.6 K/uL (0-0.8); NEUTROPHIL (%) 72.4 % (45-76); NEUTROPHIL COUNT 5.5 K/uL (1.8-6.4); PLATELET COUNT 195 K/uL (156-360); RBC DIS.WIDTH-CV 11.7 % (11.8-14.6); RBC DIS.WIDTH-SD 37.8 % (39-53); RED BLOOD COUNT 5.16 M/uL (3.80-5.20); WHITE BLOOD COUNT 7.7 K/uL (4.1-10.2)
[2018-04-13 17:29] LABS: ALBUMIN 4.4 g/dL (3.2-4.8); CHLORIDE 94 mEq/L (99-109); POTASSIUM 3.4 mEq/L (3.7-5.4); SODIUM 135 mEq/L (136-147)
[2018-04-13 17:31] LABS: GLUCOSE 80 mg/dL (70-99); TOTAL PROTEIN 7.2 g/dL (6.4-8.3)
[2018-04-13 17:34] LABS: TOTAL BILIRUBIN 2.2 mg/dL (0.0-1.0)
[2018-04-13 17:35] LABS: ALKALINE PHOSPHATASE 71 IU/L (3-129); CREATININE 0.8 mg/dL (0.6-1.3); GFR ESTIMATE (CALCULATED) > 59 mL/min/
[2018-04-13 17:36] LABS: UREA NITROGEN (BUN) 15 mg/dL (9-23)
[2018-04-13 17:37] LABS: AST (GOT) 21 IU/L (2-34)
[2018-04-13 17:38] LABS: ALT (GPT) 15 IU/L (3-49); LIPASE 16 U/L (1.0-51.0)
[2018-04-13 17:53] LABS: APPEARANCE CLEAR ((CLEAR)); BILIRUBIN NEGATIVE; BLOOD SMALL; COLOR YELLOW ((YELLOW)); GLUCOSE (STRIP) NEGATIVE; KETONES 80; LEUKOCYTES NEGATIVE; NITRITE NEGATIVE; PROTEIN (STRIP) 100; SPECIFIC GRAVITY 1.024 (1.000-1.030); UROBILINOGEN 0.2 MG/DL (0.2-1.0)
[2018-04-13 18:01] LABS: AMPHETAMINE NEGATIVE (500 ng/mL); BARBITURATES NEGATIVE (200 ng/mL); BENZODIAZEPINES NEGATIVE (150 ng/mL); BUPRENORPHINE NEGATIVE (10 ng/mL); COCAINE NEGATIVE (150 ng/mL); METHADONE NEGATIVE (200 ng/mL); METHAMPHETAMINE NEGATIVE (500 ng/mL); OPIATES (MORPHINE) NEGATIVE (100 ng/mL); OXYCODONE NEGATIVE (100 ng/mL); PHENCYCLIDINE NEGATIVE (25 ng/mL); PROPOXYPHENE NEGATIVE (300 ng/mL); THC CANNABINOIDS PRESUMPTIVE POSITIVE (50 ng/mL); TRICYCLIC ANTIDEPRESSANTS NEGATIVE (300 ng/mL)
[2018-04-13 18:05] LABS: BACTERIA RARE /HPF; EPITHELIAL CELLS RARE /HPF; MUCUS TRACE /LPF; UCUL ADDED? NO; WHITE BLOOD CELLS 0-5 /HPF (0-5)
[2018-04-13] MEDS ORDERED: REGLAN5 MG PO (20:08)
[2018-04-13 20:17] VITALS: BP 157/115
== END 2018-04-13 20:35 | disposition home or self-care (01) ==
LOC: EME 15:24
PROVIDERS: Emergency Medicine
DX: R10.30 Lower abdominal pain, unspecified (principal); G89.29 Other chronic pain; R11.2 Nausea with vomiting, unspecified; F12.10 Cannabis abuse, uncomplicated; R00.0 Tachycardia, unspecified; K57.30 Diverticulosis of large intestine without perforation or abscess without bleeding; M43.06 Spondylolysis, lumbar region; K83.8 Other specified diseases of biliary tract; J44.9 Chronic obstructive pulmonary disease, unspecified; Z86.73 Personal history of transient ischemic attack (TIA), and cerebral infarction without residual deficits; Z87.891 Personal history of nicotine dependence
CPT/HCPCS: 74177; 80053; 81003; 83690; 84999; 85025; 99281; 99285; J1630; J3010; J7030

== ENCOUNTER 2018-04-23 10:12 | Emergency (ER) | payer OTHER ==
[~2018-04-23] VITALS: Ht 149.9 cm; Wt 40.9 kg
[~2018-04-23 10:12] MED LIST changes: +REGLAN5 MG PO
[2018-04-23 10:53] LABS: HEMATOCRIT 43.2 % (36.0-46.0); HEMOGLOBIN 14.9 G/DL (11.9-15.5); MCH 31.2 PG (29.0-34.0); MCHC 34.5 G/DL (30.0-36.0); MCV 90.6 FL (83-99); PLATELET COUNT 172 K/uL (156-360); RBC DIS.WIDTH-CV 12.1 % (11.8-14.6); RBC DIS.WIDTH-SD 40.2 % (39-53); RED BLOOD COUNT 4.77 M/uL (3.80-5.20); WHITE BLOOD COUNT 7.6 K/uL (4.1-10.2)
[2018-04-23 11:05] LABS: ALBUMIN 4.1 g/dL (3.2-4.8); CHLORIDE 105 mEq/L (99-109); POTASSIUM 3.9 mEq/L (3.7-5.4); SODIUM 138 mEq/L (136-147)
[2018-04-23 11:07] LABS: GLUCOSE 134 mg/dL (70-99)
[2018-04-23 11:09] LABS: TOTAL BILIRUBIN 0.7 mg/dL (0.0-1.0)
[2018-04-23 11:11] LABS: ALKALINE PHOSPHATASE 66 IU/L (3-129); CREATININE 0.8 mg/dL (0.6-1.3); GFR ESTIMATE (CALCULATED) > 59 mL/min/
[2018-04-23 11:12] LABS: UREA NITROGEN (BUN) 11 mg/dL (9-23)
[2018-04-23 11:13] LABS: AST (GOT) 24 IU/L (2-34)
[2018-04-23 11:14] LABS: ALT (GPT) 18 IU/L (3-49)
[2018-04-23 11:21] LABS: QUANTITATIVE HCG < 4.0 MIU/ML
[2018-04-23 12:50] LABS: LIPASE 23 U/L (1.0-51.0)
[2018-04-23 13:31] LABS: APPEARANCE CLEAR ((CLEAR)); BILIRUBIN NEGATIVE; BLOOD SMALL; COLOR STRAW ((YELLOW)); GLUCOSE (STRIP) 150; KETONES NEGATIVE; LEUKOCYTES NEGATIVE; NITRITE NEGATIVE; PROTEIN (STRIP) NEGATIVE; SPECIFIC GRAVITY 1.013 (1.000-1.030); UROBILINOGEN 0.2 MG/DL (0.2-1.0)
[2018-04-23 13:45] LABS: BACTERIA 2+ /HPF; CALCIUM OXALATE CRYSTALS 2+ /HPF; EPITHELIAL CELLS RARE /HPF; MUCUS TRACE /LPF; RED BLOOD CELLS 0-5 /HPF (0-5); UCUL ADDED? YES; WHITE BLOOD CELLS 0-5 /HPF (0-5)
[2018-04-23 14:06] LABS: AMYLASE 109 IU/L (1-118)
[2018-04-23 17:39] VITALS: BP 171/90
== END 2018-04-23 17:41 | disposition home or self-care (01) ==
LOC: EME 10:12
DX: R11.2 Nausea with vomiting, unspecified (principal); G89.29 Other chronic pain; R10.9 Unspecified abdominal pain; J44.9 Chronic obstructive pulmonary disease, unspecified; Z86.73 Personal history of transient ischemic attack (TIA), and cerebral infarction without residual deficits; Z87.891 Personal history of nicotine dependence
CPT/HCPCS: 80053; 81003; 82150; 83690; 84702; 85027; 87086; 99281; 99284; J1630; J1885; J2405; J2765; J7030